=== PATIENT | female | born 1930 | race Caucasian/White ===

== ENCOUNTER 2016-05-07 09:59 | Outpatient (CLI) | payer MEDICARE, OTHER | END 2016-05-07 10:00 | disposition home or self-care (01) | DX: R10.30 Lower abdominal pain, unspecified (principal) ==

== ENCOUNTER 2016-05-14 09:56 | Outpatient (CLI) | payer MEDICARE, OTHER | END 2016-05-14 09:57 | disposition home or self-care (01) | DX: Z12.31 Encounter for screening mammogram for malignant neoplasm of breast (principal) ==

== ENCOUNTER 2016-05-14 09:59 | Outpatient (CLI) | payer MEDICARE, OTHER | END 2016-05-14 10:00 | disposition home or self-care (01) | DX: D25.9 Leiomyoma of uterus, unspecified (principal) ==

== ENCOUNTER 2016-05-18 07:49 | Outpatient (CLI) | payer MEDICARE, OTHER | END 2016-05-18 07:50 | disposition home or self-care (01) | DX: R93.2 Abnormal findings on diagnostic imaging of liver and biliary tract (principal); Z90.49 Acquired absence of other specified parts of digestive tract ==

== ENCOUNTER 2016-05-26 08:10 | Outpatient (CLI) | payer MEDICARE, OTHER | END 2016-05-26 08:11 | disposition home or self-care (01) | DX: Z79.899 Other long term (current) drug therapy (principal); M81.0 Age-related osteoporosis without current pathological fracture; J30.2 Other seasonal allergic rhinitis; J45.909 Unspecified asthma, uncomplicated; I10 Essential (primary) hypertension; I25.10 Atherosclerotic heart disease of native coronary artery without angina pectoris; K21.9 Gastro-esophageal reflux disease without esophagitis; Z86.010 Personal history of colon polyps; M19.90 Unspecified osteoarthritis, unspecified site; E11.9 Type 2 diabetes mellitus without complications; E03.9 Hypothyroidism, unspecified; D64.9 Anemia, unspecified ==

== ENCOUNTER 2016-07-28 16:46 | Outpatient (CLI) | payer MEDICARE, OTHER | END 2016-07-28 16:47 | disposition short-term general hospital (02) | DX: R07.89 Other chest pain (principal) | CPT/HCPCS: A0425; A0427 ==

== ENCOUNTER 2016-11-13 15:29 | Emergency (ER) | payer MEDICARE, OTHER ==
[2016-11-13 16:25] LABS: BILIRUBIN,URINE NEGATIVE (NEGATIVE)
[2016-11-13 16:26] LABS: UA w/ MICROSCOPIC CHARGE YES
[2016-11-13 16:41] LABS: UR CULTURE IF IND INDICATED
[2016-11-13] MEDS ORDERED: SODIUM CHLORIDE 0.9% 1,000 ML IV ONE ×2 (17:30→18:21)
[2016-11-13 18:19] LABS: BASOPHILS # (AUTO) 0.1 10^3/uL (0.0-0.1); BASOPHILS % (AUTO) 0.9 %; EOSINOPHILS # (AUTO) 0.3 10^3/uL (0.0-0.7); EOSINOPHILS % (AUTO) 3.3 %; HCT - HEMATOCRIT 40.1 % (37.0-47.0); HGB - HEMOGLOBIN 13.5 g/dL (12.0-16.0); LYMPHOCYTES # (AUTO) 2.4 10^3/uL (1.5-3.5); LYMPHOCYTES % (AUTO) 28.2 %; MEAN CORPUSCULAR HEMOGLOBIN 29.3 pg (27.0-31.0); MEAN CORPUSCULAR HGB CONC 33.6 g/dL (32.0-36.0); MEAN CORPUSCULAR VOLUME 87.1 fL (81.0-99.0); MEAN PLATELET VOLUME 7.1 fL (7.9-10.8); MONOCYTES # (AUTO) 1.1 10^3/uL (0.0-1.0); MONOCYTES % (AUTO) 13.5 %; NEUTROPHILS # (AUTO) 4.6 10^3/uL (1.5-6.6); NEUTROPHILS % (AUTO) 54.1 %; RED CELL DISTRIBUTION WIDTH 13.1 % (12.0-15.0); UNCORRECTED WHITE BLOOD COUNT 8.5 x10^3/uL; WHITE BLOOD COUNT 8.5 x10^3/uL (4.8-10.8)
[2016-11-13 18:20] LABS: ALBUMIN/GLOBULIN RATIO 1.4 (1.0-2.2); BILIRUBIN,TOTAL 0.7 mg/dL (0.2-1.0); CALCIUM 9.3 mg/dL (8.5-10.3); CREATININE 0.6 mg/dL (0.4-1.0); POTASSIUM 3.9 mmol/L (3.5-5.0); TOTAL PROTEIN 7.7 g/dL (6.7-8.2)
--- NOTE | 2016-11-13 18:30 | ED Physician Documentation ---
History of Present Illness - Stated complaint Stated Complaint: LIGHT HEADED - Chief complaint Chief Complaint: Neuro - History obtained from History obtained from: Patient - History of Present Illness Timing: How many hours ago (8) Pain level max: 0 Pain level now: 0 Improved by: States that she felt better when she arrived to the hospital. States now feels normal Worsened by: States was worse after eating breakfast this morning. - Additonal information Additional information: states felt weird today. had diarrhea x1. Patient is unable to elaborate any further on her history. Denies any chest pain, nausea, shortness of breath, vomiting, fevers, Focal weakness or numbness. Denies any headache or head injury. Review of Systems Constitutional: denies: Fever, Chills Nose: denies: Rhinorrhea / runny nose, Congestion Throat: denies: Sore throat Cardiac: denies: Chest pain / pressure, Palpitations Respiratory: denies: Dyspnea, Cough, Hemoptysis, Wheezing GI: denies: Vomiting, Hematemesis, Bloody / black stool : denies: Dysuria, Frequency, Hesitancy Skin: denies: Rash Musculoskeletal: denies: Neck pain, Back pain Neurologic: denies: Headache PD PAST MEDICAL HISTORY - Past Medical History Cardiovascular: Hypertension Endocrine/Autoimmune: Type 2 diabetes, HyPOthyroidism - Past Surgical History Past Surgical History: Yes General: Cholecystectomy HEENT: Cataracts - Present Medications Home Medications: Ambulatory Orders Medication Instructions Recorded Confirmed Amlodipine Besylate 10 mg PO DAILY 04/26/15 01/02/16 Cyclosporine [Restasis] 1 drop EACHEYE BID 04/26/15 01/02/16 Fexofenadine HCl 180 mg PO DAILY 04/26/15 01/02/16 Levothyroxine [Synthroid] 100 mcg PO QDAC 04/26/15 01/02/16 Losartan [Cozaar] 100 mg DAILY 04/26/15 01/02/16 Omeprazole [PriLOSEC] 20 mg DAILY 04/26/15 01/02/16 Simvastatin 20 mg PO QPM 04/26/15 01/02/16 Alprazolam 0.25 mg PO DAILY PRN 01/02/16 01/02/16 Cyanocobalamin (Vitamin B-12) 1,000 mcg PO DAILY 01/02/16 01/02/16 [Vitamin B-12] Estrogens, Conjugated [Premarin] 0.625 mg PO Q2D 01/02/16 01/02/16 Nitrofurantoin [Macrobid] 100 mg PO BID #12 capsule 01/03/16 Cephalexin [Keflex] 500 mg PO Q6H #28 capsule 11/13/16 - Allergies Allergies/Adverse Reactions: Allergies Allergy/AdvReac Type Severity Reaction Status Date / Time ciprofloxacin HCl * AdvReac Unknown Emesis Verified 11/13/16 15:49 [From Cipro] - Social History Does the pt smoke?: No Smoking Status: Never smoker Does the pt drink ETOH?: Yes ETOH Use: Wine Does the pt have substance abuse?: No PD ED PE NORMAL - Vitals Vital signs reviewed: Yes - General General: Alert and oriented X 3, No acute distress, Well developed/nourished - HEENT HEENT: PERRL, Moist mucous membranes - Neck Neck: Supple, no meningeal sign, No JVD, No bruit - Cardiac Cardiac: RRR, Strong equal pulses - Respiratory Respiratory: No respiratory distress, Clear bilaterally - Abdomen Abdomen: Soft, Non tender, Non distended - Back Back: No CVA TTP, No spinal TTP - Derm Derm: Warm and dry, No rash - Extremities Extremities: No calf tenderness / cord - Neuro Neuro: Alert and oriented X 3, steel rigger 2-12 intact, No motor deficit, No sensory deficit, Normal speech - Psych Psych: Normal mood, Normal affect Results - Vitals Vitals: Vital Signs - 24 hr 11/13/16 11/13/16 15:45 18:38 Temperature 36.0 C L 36.0 C L Heart Rate 69 65 Respiratory 18 15 Rate Blood Pressure 137/74 H 159/60 H O2 Saturation 96 97 Oxygen O2 Source Room air - EKG (time done) 1837 Rate: Rate (enter#) (65) Rhythm: NSR Intervals: LBBB Computer interpretation: Agree with computer - Labs Labs: Laboratory Tests 11/13/16 11/13/16 11/13/16 15:53 16:06 18:02 WBC 8.5 RBC 4.60 Hgb 13.5 Hct 40.1 MCV 87.1 MCH 29.3 MCHC 33.6 RDW 13.1 Plt Count 384 MPV 7.1 L Neut # 4.6 Lymph # 2.4 [place] # 1.1 H Eos # 0.3 Baso # 0.1 Absolute Nucleated RBC 0.00 Nucleated RBCs 0.0 Sodium Potassium Chloride Carbon Dioxide Anion Gap BUN Creatinine Estimated GFR (MDRD) Glucose POC Whole Bld Glucose 134 H Calcium Total Bilirubin AST ALT Alkaline Phosphatase Total Protein Albumin Globulin Albumin/Globulin Ratio Lipase Urine Color YELLOW Urine Clarity CLEAR Urine pH 6.0 Ur Specific [place] <=1.005 Urine Protein NEGATIVE Urine Glucose (UA) NEGATIVE Urine Ketones NEGATIVE Urine Occult Blood NEGATIVE Urine Nitrite NEGATIVE Urine Bilirubin NEGATIVE Urine Urobilinogen 0.2 (NORMAL) Ur Leukocyte Esterase SMALL H Urine RBC 0-5 Urine WBC 4-5 Ur Squamous Epith Cells FEW Squamous Urine Bacteria Few Ur Microscopic Review INDICATED Urine Culture Comments INDICATED 11/13/16 18:02 WBC RBC Hgb Hct MCV MCH MCHC RDW Plt Count MPV Neut # Lymph # [place] # Eos # Baso # Absolute Nucleated RBC Nucleated RBCs Sodium 131 L Potassium 3.9 Chloride 97 L Carbon Dioxide 24 Anion Gap 10.0 BUN 13 Creatinine 0.6 Estimated GFR (MDRD) 95 Glucose 118 H POC Whole Bld Glucose Calcium 9.3 Total Bilirubin 0.7 AST 19 ALT 21 Alkaline Phosphatase 65 Total Protein 7.7 Albumin 4.5 Globulin 3.2 Albumin/Globulin Ratio 1.4 Lipase 20 L Urine Color Urine Clarity Urine pH Ur Specific [place] Urine Protein Urine Glucose (UA) Urine Ketones Urine Occult Blood Urine Nitrite Urine Bilirubin Urine Urobilinogen Ur Leukocyte Esterase Urine RBC Urine WBC Ur Squamous Epith Cells Urine Bacteria Ur Microscopic Review Urine Culture Comments PD MEDICAL DECISION MAKING - ED course Complexity details: reviewed results, re-evaluated patient, considered differential, d/w patient ED course: Patient is an 86-year-old female who complains of not feeling right today. She is found to have UTI and will place her on antibiotics for this. No other acute laboratory abnormalities. Feels normal upon arrival to the ER. Patient states that the left bundle branch block is old on her EKG. No chest pain, shortness of breath. No anginal equivalent. Tolerating p.o. without difficulty. Abdomen is soft, nontender nondistended on serial exam. Patient counseled regarding signs and symptoms for which I believe and urgent re- evaluation would be necessary. Patient with good understanding of and agreement to plan and is comfortable going home at this time This document was made in part using voice recognition software. While efforts are made to proofread this document, sound alike and grammatical errors may occur. Departure - Departure Disposition: Home, Self Care Clinical Impression: Urinary tract infection Qualifiers: Urinary tract infection type: acute cystitis Hematuria presence: without hematuria Qualified Code(s): N30.00 - Acute cystitis without hematuria Condition: Good Instructions: ED UTI Cystitis Female Follow-Up: Gila Wen MD [Primary Care Provider] - Within 1 week Prescriptions: Cephalexin [Keflex] 500 mg PO Q6H #28 capsule Comments: Take all antibiotics until gone. Return if you worsen. Discharge Date/Time: 11/13/16 18:56
[2016-11-13 18:39] VITALS: BP 159/60
== END 2016-11-13 18:56 | disposition home or self-care (01) ==
LOC: ED 15:29
DX: N30.00 Acute cystitis without hematuria (principal); I44.7 Left bundle-branch block, unspecified; R94.31 Abnormal electrocardiogram [ECG] [EKG]; I10 Essential (primary) hypertension; E11.9 Type 2 diabetes mellitus without complications; E03.9 Hypothyroidism, unspecified
CPT/HCPCS: 36415; 80053; 81001; 81003; 83690; 85025; 87086; 93005; 99283; 99284

== ENCOUNTER 2016-12-04 11:07 | Outpatient (CLI) | payer MEDICARE, OTHER ==
--- NOTE | 2016-12-04 11:31 | XRAY Report ---
TWO VIEW CHEST: 12/04/2016 CLINICAL INDICATION: Cough, wheezing. COMPARISON: 01/02/2016. FINDINGS: Frontal and lateral views of the chest demonstrate a normal cardiac silhouette. The lungs are clear. No effusion or pneumothorax is present. IMPRESSION: NORMAL CHEST. JOB #: [id number] EXT JOB #:[id number]
== END 2016-12-04 11:08 | disposition home or self-care (01) ==
LOC: DI 11:07
PROVIDERS: ATTEND Internal Medicine
DX: R05 Cough (principal); R06.2 Wheezing
CPT/HCPCS: 71020

== ENCOUNTER 2017-03-17 10:15 | Emergency (ER) | payer MEDICARE, OTHER ==
--- NOTE | 2017-03-17 10:36 | ED Physician Documentation ---
PD HPI FEMALE - Stated complaint Stated Complaint: FEMALE - Chief complaint Chief Complaint: General - History obtained from History obtained from: Patient - History of Present Illness Timing - onset: Yesterday (with feeling of small amounts urination and feeling of incomplete empptying. Has discomfort with urination today. Also with some rectal discomforta with wiping after 2-3 large BMs a few days ago.) Timing - details: Abrupt onset, Still present Associated symptoms: Dysuria, Urinary frequency. No: Fever, Pelvic pain, Genital sore/lesion, Hematuria Similar symptoms before: Has not had sx before Recently seen: Not recently seen Review of Systems Constitutional: denies: Fever, Chills Nose: denies: Rhinorrhea / runny nose, Congestion Throat: denies: Sore throat Respiratory: denies: Cough GI: denies: Nausea, Vomiting, Diarrhea (but had 2-3 large BMs a few days ago with some rectal tender with wiping since. No blood with stool nor wiping.) : reports: Dysuria, Frequency. denies: Hematuria, Discharge Skin: denies: Rash, Lesions Musculoskeletal: denies: Neck pain, Back pain, Extremity swelling Neurologic: denies: Generalized weakness, Focal weakness, Numbness, Near syncope Immunocompromised: denies: Immunocompromised PD PAST MEDICAL HISTORY - Past Medical History Cardiovascular: Hypertension Endocrine/Autoimmune: Type 2 diabetes, HyPOthyroidism - Past Surgical History Past Surgical History: Yes General: Cholecystectomy HEENT: Cataracts - Present Medications Home Medications: Ambulatory Orders Medication Instructions Recorded Confirmed Amlodipine Besylate 10 mg PO DAILY 04/26/15 03/17/17 Fexofenadine HCl 180 mg PO DAILY 04/26/15 03/17/17 Levothyroxine [Synthroid] 100 mcg PO QDAC 04/26/15 03/17/17 Losartan [Cozaar] 100 mg PO DAILY 04/26/15 03/17/17 Omeprazole [PriLOSEC] 20 mg PO DAILY 04/26/15 03/17/17 Simvastatin 20 mg PO QPM 04/26/15 03/17/17 ALPRAZolam [Alprazolam] 0.25 mg PO DAILY PRN 01/02/16 03/17/17 Cyanocobalamin (Vitamin B-12) 1,000 mcg PO DAILY 01/02/16 03/17/17 [Vitamin B-12] Hydrocortisone Acetate [Anucort-Hc] 25 mg RC DAILY #5 supp.rect 03/17/17 Metoprolol Tartrate 1 tab PO DAILY 03/17/17 03/17/17 Phenazopyridine [Pyridium] 100 mg PO TID PRN #15 tablet 03/17/17 Sulfamethox/Trimeth 800/160 1 each PO BID #14 tablet 03/17/17 [Bactrim Ds 800/160] - Allergies Allergies/Adverse Reactions: Allergies Allergy/AdvReac Type Severity Reaction Status Date / Time ciprofloxacin HCl * AdvReac Unknown Emesis Verified 03/17/17 10:25 [From Cipro] - Social History Does the pt smoke?: No Smoking Status: Never smoker Does the pt drink ETOH?: Yes Does the pt have substance abuse?: No PD ED PE NORMAL - Vitals Vital signs reviewed: Yes - General General: Alert and oriented X 3, Well developed/nourished - Cardiac Cardiac: RRR, No murmur - Respiratory Respiratory: Clear bilaterally - Abdomen Abdomen: Soft, Non tender - Female Female : Deferred - Rectal Rectal: Deferred - Back Back: No CVA TTP - Derm Derm: Normal color, Warm and dry - Extremities Extremities: No edema, No calf tenderness / cord - Neuro Neuro: Alert and oriented X 3, No motor deficit, Normal speech Results - Vitals Vitals: Vital Signs - 24 hr 03/17/17 03/17/17 10:23 12:31 Temperature 36.2 C L 35.6 C L Heart Rate 79 73 Respiratory 16 20 Rate Blood Pressure 140/105 H 154/71 H O2 Saturation 96 96 Oxygen O2 Source Room air - Labs Labs: Laboratory Tests 03/17/17 03/17/17 03/17/17 10:58 11:14 11:15 WBC 9.1 RBC 4.59 Hgb 13.4 Hct 39.2 MCV 85.4 MCH 29.3 MCHC 34.3 RDW 13.3 Plt Count 369 MPV 6.8 L Neut # 5.3 Lymph # 2.3 [place] # 1.2 H Eos # 0.2 Baso # 0.1 Absolute Nucleated RBC 0.00 Nucleated RBC % 0.0 Sodium Potassium Chloride Carbon Dioxide Anion Gap BUN Creatinine Estimated GFR (MDRD) Glucose POC Whole Bld Glucose 132 H Glycated Hemoglobin Estim Average Glucose Calcium Magnesium Total Bilirubin AST ALT Alkaline Phosphatase Total Protein Albumin Globulin Albumin/Globulin Ratio Lipase Urine Color YELLOW Urine Clarity SL. CLOUDY Urine pH 7.0 Ur Specific [place] 1.010 Urine Protein NEGATIVE Urine Glucose (UA) NEGATIVE Urine Ketones NEGATIVE Urine Occult Blood TRACE-INTA Urine Nitrite POSITIVE H Urine Bilirubin NEGATIVE Urine Urobilinogen 0.2 (NORMAL) Ur Leukocyte Esterase LARGE H Urine RBC 0-5 Urine WBC >25 H Ur Squamous Epith Cells NONE SEEN Urine Bacteria Moderate H Ur Microscopic Review INDICATED Urine Culture Comments INDICATED 03/17/17 03/17/17 11:15 11:15 WBC RBC Hgb Hct MCV MCH MCHC RDW Plt Count MPV Neut # Lymph # [place] # Eos # Baso # Absolute Nucleated RBC Nucleated RBC % Sodium 132 L Potassium 4.0 Chloride 96 L Carbon Dioxide 24 Anion Gap 12.0 BUN 13 Creatinine 0.6 Estimated GFR (MDRD) 95 Glucose 142 H POC Whole Bld Glucose Glycated Hemoglobin 7.5 H Estim Average Glucose 169 H Calcium 9.3 Magnesium 2.1 Total Bilirubin 0.7 AST 33 ALT 29 Alkaline Phosphatase 67 Total Protein 7.3 Albumin 4.0 Globulin 3.3 Albumin/Globulin Ratio 1.2 Lipase 21 L Urine Color Urine Clarity Urine pH Ur Specific [place] Urine Protein Urine Glucose (UA) Urine Ketones Urine Occult Blood Urine Nitrite Urine Bilirubin Urine Urobilinogen Ur Leukocyte Esterase Urine RBC Urine WBC Ur Squamous Epith Cells Urine Bacteria Ur Microscopic Review Urine Culture Comments PD MEDICAL DECISION MAKING - ED course Complexity details: reviewed results (UA is c/w UTI. She had about 360 ml urine after initial urination with only small amount out but then had another larger urination. So I don't think she needs reese, given that there should be improvement with treating the UTI. Presume she has some mild hemorrhoid by her complaints and did not do rectal. ), considered differential, d/w patient Departure - Departure Disposition: 01 Home, Self Care Clinical Impression: Acute urinary retention, Rectal discomfort UTI (urinary tract infection) Qualifiers: Urinary tract infection type: acute cystitis Hematuria presence: without hematuria Qualified Code(s): N30.00 - Acute cystitis without hematuria Condition: Stable Record reviewed to determine appropriate education?: Yes Instructions: ED Retention Urinary Female, ED UTI Cystitis Female Follow-Up: Gila Wen MD [Primary Care Provider] - Prescriptions: Hydrocortisone Acetate [Anucort-Hc] 25 mg RC DAILY #5 supp.rect Phenazopyridine [Pyridium] 100 mg PO TID PRN #15 tablet PRN Reason: Pain Sulfamethox/Trimeth 800/160 [Bactrim Ds 800/160] 1 each PO BID #14 tablet Comments: You do have a bladder infection. This is causing irritation which is likely the cause of not emptying the bladder consistently. I would presume the urine outflow will improve as the infection clears over the next couple of days. Drink lots of fluids. He can use the phenazopyridine as needed for discomfort with urination. Bactrim twice daily for a week for the infection. Also for your presumed hemorrhoidal discomfort, use the Anusol rectal suppository daily for the next 3-5 days until improved. Recheck if not improved over the next few days with your primary care. Discharge Date/Time: 03/17/17 12:57
[2017-03-17 11:22] LABS: BASOPHILS # (AUTO) 0.1 10^3/uL (0.0-0.1); EOSINOPHILS # (AUTO) 0.2 10^3/uL (0.0-0.7); EOSINOPHILS % (AUTO) 2.5 %; HCT - HEMATOCRIT 39.2 % (37.0-47.0); HGB - HEMOGLOBIN 13.4 g/dL (12.0-16.0); LYMPHOCYTES # (AUTO) 2.3 10^3/uL (1.5-3.5); LYMPHOCYTES % (AUTO) 25.1 %; MEAN CORPUSCULAR HEMOGLOBIN 29.3 pg (27.0-31.0); MEAN CORPUSCULAR HGB CONC 34.3 g/dL (32.0-36.0); MEAN CORPUSCULAR VOLUME 85.4 fL (81.0-99.0); MEAN PLATELET VOLUME 6.8 fL (7.9-10.8); MONOCYTES # (AUTO) 1.2 10^3/uL (0.0-1.0); MONOCYTES % (AUTO) 13.3 %; NEUTROPHILS # (AUTO) 5.3 10^3/uL (1.5-6.6); NEUTROPHILS % (AUTO) 58.1 %; RED BLOOD COUNT 4.59 10^6/uL (4.20-5.40); RED CELL DISTRIBUTION WIDTH 13.3 % (12.0-15.0); UNCORRECTED WHITE BLOOD COUNT 9.1 x10^3/uL; WHITE BLOOD COUNT 9.1 x10^3/uL (4.8-10.8)
[2017-03-17 11:24] LABS: BILIRUBIN,URINE NEGATIVE (NEGATIVE)
[2017-03-17 11:26] LABS: UA w/ MICROSCOPIC CHARGE YES
[2017-03-17 11:37] LABS: ALBUMIN/GLOBULIN RATIO 1.2 (1.0-2.2); BILIRUBIN,TOTAL 0.7 mg/dL (0.2-1.0); CALCIUM 9.3 mg/dL (8.5-10.3); CREATININE 0.6 mg/dL (0.4-1.0); MAGNESIUM 2.1 mg/dL (1.7-2.8); TOTAL PROTEIN 7.3 g/dL (6.7-8.2)
[2017-03-17 11:38] LABS: UR CULTURE IF IND INDICATED; WBC,URINE >25 /HPF (0-5)
[2017-03-17 11:44] LABS: HEMOGLOBIN A1C 0.83 g/dL
[2017-03-17] MEDS ORDERED: SULFAMETH/TRIMETH DS 800/160 MG TABLET PO STA (11:58)
[2017-03-17] MEDS ORDERED: PHENAZOPYRIDINE 100 MG TABLET PO STA (11:58)
[2017-03-17] MEDS ORDERED: SULFAMETH/TRIMETH DS 800/160 MG TABLET PO ONE (12:15)
[2017-03-17] MEDS ORDERED: PHENAZOPYRIDINE 100 MG TABLET PO ONE (12:15)
[2017-03-17 12:32] VITALS: BP 154/71
== END 2017-03-17 12:57 | disposition home or self-care (01) ==
LOC: ED 10:15
DX: N30.00 Acute cystitis without hematuria (principal); R33.9 Retention of urine, unspecified; I10 Essential (primary) hypertension; E11.9 Type 2 diabetes mellitus without complications; E03.9 Hypothyroidism, unspecified
CPT/HCPCS: 36415; 51798; 80053; 81001; 83036; 83690; 83735; 85025; 87086; 87181; 99283; A9270; 81003

== ENCOUNTER 2017-05-31 08:15 | Outpatient (CLI) | payer MEDICARE, OTHER ==
[2017-05-31 12:16] LABS: BASOPHILS # (AUTO) 0.1 10^3/uL (0.0-0.1); BASOPHILS % (AUTO) 1.3 %; EOSINOPHILS # (AUTO) 0.2 10^3/uL (0.0-0.7); EOSINOPHILS % (AUTO) 2.6 %; HGB - HEMOGLOBIN 13.4 g/dL (12.0-16.0); LYMPHOCYTES # (AUTO) 2.1 10^3/uL (1.5-3.5); LYMPHOCYTES % (AUTO) 29.5 %; MEAN CORPUSCULAR HEMOGLOBIN 29.6 pg (27.0-31.0); MEAN CORPUSCULAR HGB CONC 34.4 g/dL (32.0-36.0); MEAN CORPUSCULAR VOLUME 85.9 fL (81.0-99.0); MEAN PLATELET VOLUME 7.7 fL (7.9-10.8); MONOCYTES # (AUTO) 0.9 10^3/uL (0.0-1.0); MONOCYTES % (AUTO) 12.9 %; NEUTROPHILS # (AUTO) 3.8 10^3/uL (1.5-6.6); NEUTROPHILS % (AUTO) 53.7 %; PLT - PLATELET COUNT 400 10^3/uL (130-450); RED BLOOD COUNT 4.54 10^6/uL (4.20-5.40); RED CELL DISTRIBUTION WIDTH 13.1 % (12.0-15.0); WHITE BLOOD COUNT 7.1 x10^3/uL (4.8-10.8)
[2017-05-31 12:31] LABS: ALBUMIN 4.4 g/dL (3.2-5.5); ALBUMIN/GLOBULIN RATIO 1.5 (1.0-2.2); ALKALINE PHOSPHATASE 66 IU/L (42-121); ALT ALANINE AMINOTRANSFERASE 23 IU/L (10-60); AST ASPARTATE AMINOTRANSFERASE 29 IU/L (10-42); BILIRUBIN,TOTAL 0.4 mg/dL (0.2-1.0); BUN - BLOOD UREA NITROGEN 14 mg/dL (6-20); CALCIUM 8.8 mg/dL (8.5-10.3); CARBON DIOXIDE - CO2 24 mmol/L (21-32); CHLORIDE 96 mmol/L (101-111); CHOL/HDL RATIO 4.7 (<4.4); CHOLESTEROL 186 mg/dL; CK- CREATINE KINASE 100 IU/L (22-269); CREATININE 0.7 mg/dL (0.4-1.0); GFR - MDRD 79 (>89); GLUCOSE 146 mg/dL (70-100); HDL CHOLESTEROL 40 mg/dL; LDL CHOLESTEROL,CALCULATED 88 mg/dL; LDL/HDL RATIO 2.2 (<4.4); SODIUM 129 mmol/L (135-145); TOTAL PROTEIN 7.4 g/dL (6.7-8.2); VLDL CHOLESTEROL 58 mg/dL
[2017-05-31 12:33] LABS: HB2 TOTAL 14.8 g/dL; HEMOGLOBIN A1C 0.89 g/dL; HEMOGLOBIN A1C % 7.7 % (4.6-6.2)
[2017-05-31 12:39] LABS: THYROID STIMULATING HORMONE 2.75 uIU/mL (0.34-5.60)
[2017-05-31 18:08] LABS: BILIRUBIN,URINE NEGATIVE (NEGATIVE); GLUCOSE, URINE (UA) NEGATIVE (NEGATIVE); KETONES,URINE (UA) NEGATIVE (NEGATIVE); LEUKOCYTE ESTERASE, URINE TRACE (NEGATIVE); NITRITE,URINE NEGATIVE (NEGATIVE); OCCULT BLOOD,URINE NEGATIVE (NEGATIVE); PROTEIN,URINE NEGATIVE (NEGATIVE); UROBILINOGEN,URINE 0.2 (NORMAL) E.U./dL (NORMAL)
[2017-05-31 18:18] LABS: CREATININE,URINE 52.9 mg/dL; MICROALBUM/CREATININE RATIO,UR 9.5 ug/mg (<30.0); MICROALBUMIN,URINE 0.5 mg/dL (0-300.0)
[2017-05-31 18:19] LABS: CLARITY,URINE HAZY (CLEAR)
[2017-05-31 19:12] LABS: BACTERIA,URINE Rare /HPF (None Seen); RBC,URINE None Seen /HPF (0-5); SQUAMOUS EPITHELIAL CELL,UR FEW Squamous (<= Few)
== END 2017-05-31 08:16 | disposition home or self-care (01) ==
LOC: LAB.F 08:15
PROVIDERS: ATTEND Internal Medicine
DX: D64.9 Anemia, unspecified (principal); K76.0 Fatty (change of) liver, not elsewhere classified; Z79.899 Other long term (current) drug therapy; K21.9 Gastro-esophageal reflux disease without esophagitis; I10 Essential (primary) hypertension; I25.10 Atherosclerotic heart disease of native coronary artery without angina pectoris; R20.0 Anesthesia of skin; E03.9 Hypothyroidism, unspecified; E11.9 Type 2 diabetes mellitus without complications; J30.2 Other seasonal allergic rhinitis; J45.909 Unspecified asthma, uncomplicated; M19.90 Unspecified osteoarthritis, unspecified site; M81.0 Age-related osteoporosis without current pathological fracture; Z86.010 Personal history of colon polyps; Z87.19 Personal history of other diseases of the digestive system
CPT/HCPCS: 36415; 80053; 80061; 81001; 81003; 82043; 82306; 82550; 82570; 82607; 83036; 83721; 84443; 85025; 87086

== ENCOUNTER 2017-08-17 08:23 | Outpatient (CLI) | payer MEDICARE, OTHER ==
[2017-08-17 13:39] LABS: CALCIUM 8.7 mg/dL (8.5-10.3); CREATININE 0.6 mg/dL (0.4-1.0)
[2017-08-17 13:55] LABS: HB2 TOTAL 14.6 g/dL; HEMOGLOBIN A1C 0.85 g/dL; HEMOGLOBIN A1C % 7.5 % (4.6-6.2)
[2017-08-17 17:52] LABS: BILIRUBIN,URINE NEGATIVE (NEGATIVE); GLUCOSE, URINE (UA) NEGATIVE (NEGATIVE); KETONES,URINE (UA) NEGATIVE (NEGATIVE); LEUKOCYTE ESTERASE, URINE LARGE (NEGATIVE); NITRITE,URINE NEGATIVE (NEGATIVE); OCCULT BLOOD,URINE NEGATIVE (NEGATIVE); PROTEIN,URINE NEGATIVE (NEGATIVE); UROBILINOGEN,URINE 0.2 (NORMAL) E.U./dL (NORMAL)
[2017-08-17 17:57] LABS: CLARITY,URINE CLOUDY (CLEAR)
[2017-08-17 18:39] LABS: BACTERIA,URINE Many /HPF (None Seen); RBC,URINE None Seen /HPF (0-5); SQUAMOUS EPITHELIAL CELL,UR NONE SEEN (<= Few); WBC CLUMPS,URINE PRESENT
== END 2017-08-17 08:24 | disposition home or self-care (01) ==
LOC: LAB.F 08:23
PROVIDERS: ATTEND Internal Medicine
DX: E11.9 Type 2 diabetes mellitus without complications (principal); N30.00 Acute cystitis without hematuria; Z79.899 Other long term (current) drug therapy
CPT/HCPCS: 36415; 80048; 81001; 81003; 83036; 87086

== ENCOUNTER 2017-09-03 08:43 | Outpatient (CLI) | payer MEDICARE, OTHER ==
[2017-09-03 17:23] LABS: MICROALBUMIN,URINE 0.3 mg/dL (0-300.0)
[2017-09-03 17:27] LABS: BUN - BLOOD UREA NITROGEN 11 mg/dL (6-20); CALCIUM 8.8 mg/dL (8.5-10.3); CARBON DIOXIDE - CO2 25 mmol/L (21-32); CHLORIDE 97 mmol/L (101-111); CHOL/HDL RATIO 4.4 (<4.4); CHOLESTEROL 181 mg/dL; CREATININE 0.6 mg/dL (0.4-1.0); GFR - MDRD 95 (>89); GLUCOSE 151 mg/dL (70-100); HDL CHOLESTEROL 41 mg/dL; HEMOGLOBIN A1C 0.85 g/dL; HEMOGLOBIN A1C % 7.7 % (4.6-6.2); LDL CHOLESTEROL,CALCULATED 93 mg/dL; LDL/HDL RATIO 2.3 (<4.4); SODIUM 131 mmol/L (135-145); VLDL CHOLESTEROL 47 mg/dL
== END 2017-09-03 08:44 | disposition home or self-care (01) ==
LOC: LAB.F 08:43
PROVIDERS: ATTEND Internal Medicine
DX: E87.1 Hypo-osmolality and hyponatremia (principal); E11.9 Type 2 diabetes mellitus without complications; E78.5 Hyperlipidemia, unspecified; E03.9 Hypothyroidism, unspecified
CPT/HCPCS: 36415; 80048; 80061; 82043; 83036; 83721; 84300; 84443

== ENCOUNTER 2018-01-31 07:18 | Outpatient (CLI) | payer MEDICARE, OTHER ==
[2018-01-31 10:52] LABS: BASOPHILS # (AUTO) 0.1 10^3/uL (0.0-0.1); BASOPHILS % (AUTO) 0.9 %; EOSINOPHILS # (AUTO) 0.3 10^3/uL (0.0-0.7); EOSINOPHILS % (AUTO) 4.1 %; HGB - HEMOGLOBIN 13.8 g/dL (12.0-16.0); LYMPHOCYTES % (AUTO) 25.7 %; MEAN CORPUSCULAR HEMOGLOBIN 29.9 pg (27.0-31.0); MEAN CORPUSCULAR HGB CONC 34.4 g/dL (32.0-36.0); MEAN CORPUSCULAR VOLUME 86.8 fL (81.0-99.0); MEAN PLATELET VOLUME 7.4 fL (7.9-10.8); MONOCYTES % (AUTO) 12.7 %; NEUTROPHILS # (AUTO) 4.3 10^3/uL (1.5-6.6); NEUTROPHILS % (AUTO) 56.6 %; PLT - PLATELET COUNT 424 10^3/uL (130-450); RED BLOOD COUNT 4.62 10^6/uL (4.20-5.40); RED CELL DISTRIBUTION WIDTH 13.3 % (12.0-15.0); WHITE BLOOD COUNT 7.6 x10^3/uL (4.8-10.8)
[2018-01-31 11:03] LABS: BUN - BLOOD UREA NITROGEN 10 mg/dL (6-20); CALCIUM 9.2 mg/dL (8.5-10.3); CARBON DIOXIDE - CO2 23 mmol/L (21-32); CHLORIDE 97 mmol/L (101-111); CHOL/HDL RATIO 5.8 (<4.4); CHOLESTEROL 267 mg/dL; CREATININE 0.6 mg/dL (0.4-1.0); GFR - MDRD 95 (>89); GLUCOSE 148 mg/dL (70-100); HDL CHOLESTEROL 46 mg/dL; LDL CHOLESTEROL,CALCULATED 151 mg/dL; LDL/HDL RATIO 3.3 (<4.4); SODIUM 130 mmol/L (135-145); VLDL CHOLESTEROL 70 mg/dL
[2018-01-31 11:04] LABS: FERRITIN 153.9 ng/mL (11.0-306.8)
[2018-01-31 11:10] LABS: MAGNESIUM 2.3 mg/dL (1.7-2.8)
== END 2018-01-31 07:19 | disposition home or self-care (01) ==
LOC: LAB.F 07:18
PROVIDERS: ATTEND Internal Medicine Gastroenterology
DX: E87.1 Hypo-osmolality and hyponatremia (principal); E78.5 Hyperlipidemia, unspecified; E03.9 Hypothyroidism, unspecified; R42 Dizziness and giddiness; Z86.010 Personal history of colon polyps
CPT/HCPCS: 36415; 80048; 80061; 82150; 82306; 82607; 82728; 83540; 83690; 83721; 83735; 84443; 84466; 85025

== ENCOUNTER 2018-04-01 07:45 | Outpatient (CLI) | payer MEDICARE, OTHER ==
[2018-04-01 11:19] LABS: ALBUMIN/GLOBULIN RATIO 1.1 (1.0-2.2); ALKALINE PHOSPHATASE 92 IU/L (42-121); ALT ALANINE AMINOTRANSFERASE 23 IU/L (10-60); AST ASPARTATE AMINOTRANSFERASE 26 IU/L (10-42); BILIRUBIN,TOTAL 0.6 mg/dL (0.2-1.0); BUN - BLOOD UREA NITROGEN 13 mg/dL (6-20); CARBON DIOXIDE - CO2 26 mmol/L (21-32); CHLORIDE 97 mmol/L (101-111); CHOL/HDL RATIO 4.3 (<4.4); CHOLESTEROL 172 mg/dL; CREATININE 0.5 mg/dL (0.4-1.0); GFR - MDRD 116 (>89); GLUCOSE 172 mg/dL (70-100); HDL CHOLESTEROL 40 mg/dL; LDL CHOLESTEROL,CALCULATED 66 mg/dL; LDL/HDL RATIO 1.7 (<4.4); SODIUM 133 mmol/L (135-145); TOTAL PROTEIN 7.5 g/dL (6.7-8.2); VLDL CHOLESTEROL 66 mg/dL
[2018-04-01 11:38] LABS: HB2 TOTAL 13.3 g/dL; HEMOGLOBIN A1C 0.81 g/dL; HEMOGLOBIN A1C % 7.7 % (4.6-6.2)
== END 2018-04-01 07:46 | disposition home or self-care (01) ==
LOC: LAB.F 07:45
PROVIDERS: ATTEND Internal Medicine
DX: E78.5 Hyperlipidemia, unspecified (principal); R73.01 Impaired fasting glucose; E03.9 Hypothyroidism, unspecified
CPT/HCPCS: 36415; 80053; 80061; 83036; 83721; 84443

== ENCOUNTER 2018-05-26 09:51 | Outpatient (CLI) | payer MEDICARE, OTHER ==
--- NOTE | 2018-05-26 12:38 | DEXA Report ---
Reason: ASYMPTOMATIC MENOPAUSAL STATE Procedure Date: 05/26/2018 Accession Number: [id number] / [id number] Procedure: DEX - Dexa Spine and/or Hip CPT Code: FULL RESULT: EXAM: Dexa Spine and/or Hip DATE: 05/26/2018 11:04 AM CLINICAL HISTORY: ASYMPTOMATIC MENOPAUSAL STATE TECHNIQUE: Dual energy x-ray absorptiometry (DXA) was performed on a [employer] System. Regions measured are the AP Spine, femoral neck, and if needed forearm. COMPARISON: None. In accordance with the International Society for Clinical Densitometry (ISCD) guidelines, data from previous exams may be reanalyzed using current recommendations and techniques. This is done to allow a more accurate basis for comparison with the current study. FINDINGS: The data for the lumbar spine is as follows: BMD (g/cm/cm) T-SCORE Z-SCORE REGION L1 1.060 -0.6 1.3 L2 1.217 0.1 2.1 L3 1.365 1.4 3.3 L4 1.362 1.3 3.3 TOTAL 1.247 0.6 2.5 NOTE: All evaluable vertebrae are used for classification The data for the hip is as follows: BMD (g/cm/cm) T-SCORE Z-SCORE REGION Neck 0.688 -2.5 0.0 TOTAL 0.816 -1.5 0.9 NOTE: The femoral neck or total proximal femur, whichever is lowest, is used for classification. IMPRESSION: THE WHO CLASSIFICATION BASED ON THE INTERNATIONAL REFERENCE STANDARD IS OSTEOPENIA (bordering on Osteoporosis). THE FRACTURE RISK IS INCREASED. RECOMMENDATION: Patients with diagnosis of osteoporosis or osteopenia should have regular bone mineral density assessment. For those eligible for Medicare, routine testing is allowed once every 2 years. Testing frequency can be increased for patients who have rapidly progressing disease or for those who are receiving medical therapy to restore bone mass. COMMENT: World Health Organization (WHO) definitions for osteoporosis and osteopenia: NORMAL BMD: T-score at -1.0 or higher, fracture risk is low OSTEOPENIA BMD: T-score between -1.0 and -2.5, fracture risk is increased. OSTEOPOROSIS BMD: T-score at -2.5 or lower, fracture risk is high. National Osteoporosis Foundation recommends: 1. Obtain adequate dietary calcium (at least 1200 mg per day) and vitamin D (400-800 international units per day). 2. Participate, as appropriate, in regular weightbearing and muscle-strengthening exercise. 3. Avoid tobacco use and reduce alcohol and caffeine intake. 4. For more detailed information see the website at www.NOF.org.
== END 2018-05-26 09:52 | disposition home or self-care (01) ==
LOC: DI 09:51
PROVIDERS: ATTEND Internal Medicine
DX: M85.89 Other specified disorders of bone density and structure, multiple sites (principal); Z78.0 Asymptomatic menopausal state
CPT/HCPCS: 77080

== ENCOUNTER 2018-08-13 20:45 | Outpatient (CLI) | payer MEDICARE, OTHER | END 2018-08-13 20:46 | disposition critical access hospital (66) | LOC: EMS 20:45 | PROVIDERS: ATTEND Surgery | DX: R11.2 Nausea with vomiting, unspecified (principal); R19.7 Diarrhea, unspecified | CPT/HCPCS: A0425; A0427 ==

== ENCOUNTER 2018-08-13 21:10 | Emergency (ER) | payer MEDICARE, OTHER ==
[2018-08-13] MEDS ORDERED: SODIUM CHLORIDE 0.9% 1,000 ML IV ONE (21:18)
--- NOTE | 2018-08-13 21:21 | ED Physician Documentation ---
History of Present Illness - Stated complaint Stated Complaint: N/V/D - Chief complaint Chief Complaint: Abd Pain - History obtained from History obtained from: Patient - Additonal information Additional information: Patient is an 88-year-old female with history of gallbladder removal presenting with several days of mild, diffuse abdominal discomfort associated with nonbloody vomiting and diarrhea. Patient reports that she has multiple recent sick contacts with similar symptoms in her family. Patient has taken Imodium with improvement. Last Imodium was taken yesterday. Patient also reports v omiting has significantly subsided, but complains of frequent diarrhea today. No Imodium today. Patient denies fever, urination changes, or other complaints. No other improving or worsening factors noted.Patient remains compliant with all her medications.Patient started on IV fluids and received Zofran in route by ambulance. Review of Systems Constitutional: denies: Fever GI: reports: Abdominal Pain, Nausea, Vomiting, Diarrhea PD PAST MEDICAL HISTORY - Past Medical History Cardiovascular: Hypertension Endocrine/Autoimmune: Type 2 diabetes, HyPOthyroidism - Past Surgical History Past Surgical History: Yes General: Cholecystectomy HEENT: Cataracts - Present Medications Home Medications: Ambulatory Orders Medication Instructions Recorded Confirmed RX: Amlodipine Besylate 10 mg PO DAILY 04/26/15 03/17/17 RX: Fexofenadine HCl 180 mg PO DAILY 04/26/15 03/17/17 RX: Levothyroxine [Synthroid] 100 mcg PO QDAC 04/26/15 03/17/17 RX: Losartan [Cozaar] 100 mg PO DAILY 04/26/15 03/17/17 RX: Omeprazole [PriLOSEC] 20 mg PO DAILY 04/26/15 03/17/17 RX: Simvastatin 20 mg PO QPM 04/26/15 03/17/17 RX: ALPRAZolam [Alprazolam] 0.25 mg PO DAILY PRN 01/02/16 03/17/17 RX: Cyanocobalamin (Vitamin B-12) 1,000 mcg PO DAILY 01/02/16 03/17/17 [Vitamin B-12] Hydrocortisone Acetate [Anucort-Hc] 25 mg RC DAILY #5 supp.rect 03/17/17 Phenazopyridine [Pyridium] 100 mg PO TID PRN #15 tablet 03/17/17 RX: Metoprolol Tartrate 1 tab PO DAILY 03/17/17 03/17/17 Ciprofloxacin HCl [Cipro] 500 mg PO BID #14 tablet 08/14/18 Ondansetron Odt [Zofran] 4 mg TL Q6H PRN #10 tablet 08/14/18 - Allergies Allergies/Adverse Reactions: Allergies Allergy/AdvReac Type Severity Reaction Status Date / Time ciprofloxacin HCl * AdvReac Unknown Emesis Verified 08/13/18 21:17 [From Cipro] - Social History Does the pt smoke?: No Smoking Status: Never smoker Does the pt drink ETOH?: Yes Does the pt have substance abuse?: No PD ED PE NORMAL - General General: Alert and oriented X 3, No acute distress, Well developed/nourished - HEENT HEENT: Moist mucous membranes, Pharynx benign - Cardiac Cardiac: RRR, No murmur - Respiratory Respiratory: No respiratory distress, Clear bilaterally - Abdomen Abdomen: Normal bowel sounds, Soft, Non tender, Non distended - Derm Derm: Normal color, Warm and dry, No rash - Extremities Extremities: No deformity, No tenderness to palpate - Neuro Neuro: Alert and oriented X 3, No motor deficit, No sensory deficit - Psych Psych: Normal mood, Normal affect Results - Vitals Vitals: Vital Signs - 24 hr 08/13/18 08/13/18 21:12 23:46 Temperature 37 C Heart Rate 84 86 Respiratory 18 16 Rate Blood Pressure 145/61 H 129/55 L O2 Saturation 96 94 Oxygen O2 Source Room air - Labs Labs: Laboratory Tests 08/13/18 08/13/18 08/13/18 21:30 21:30 21:45 WBC 9.7 RBC 4.17 L Hgb 12.0 Hct 36.1 L MCV 86.6 MCH 28.8 MCHC 33.3 RDW 13.6 Plt Count 310 MPV 7.0 L Neut # (Auto) 7.0 H Lymph # (Auto) 1.3 L [place] # (Auto) 1.2 H Eos # (Auto) 0.2 Baso # (Auto) 0.0 Absolute Nucleated RBC 0.00 Nucleated RBC % 0.0 Sodium 132 L Potassium 3.3 L Chloride 100 L Carbon Dioxide 22 Anion Gap 10.0 BUN 9 Creatinine 0.4 Estimated GFR (MDRD) 151 Glucose 123 H Calcium 8.3 L Total Bilirubin 0.5 AST 39 ALT 84 H Alkaline Phosphatase 81 Total Protein 6.5 L Albumin 3.5 Globulin 3.0 Albumin/Globulin Ratio 1.2 Lipase 19 L Urine Color YELLOW Urine Clarity HAZY Urine pH 6.0 Ur Specific [place] <=1.005 Urine Protein NEGATIVE Urine Glucose (UA) NEGATIVE Urine Ketones NEGATIVE Urine Occult Blood NEGATIVE Urine Nitrite NEGATIVE Urine Bilirubin NEGATIVE Urine Urobilinogen 0.2 (NORMAL) Ur Leukocyte Esterase MODERATE H Urine RBC 0-5 Urine WBC 6-10 H Ur Squamous Epith Cells FEW Squamous Urine Bacteria Rare Urine Mucus Few Strands Ur Microscopic Review INDICATED Urine Culture Comments INDICATED PD MEDICAL DECISION MAKING - ED course Complexity details: reviewed old records, reviewed results, re-evaluated patient, considered differential, d/w patient ED course: Feel the patient's symptoms are likely related to viral illness or food poisoning given patient's multiple recent sick contacts with similar symptoms. Patient has had cholecystectomy, making gallbladder disease also less likely. Additionally, abdominal exam is extremely benign and have low suspicion for appendicitis, small bowel obstruction, diverticulitis, or other complication. Patient denies urinary symptoms and have low suspicion for renal disease or UTI at this time. Patient symptoms of vomiting have nearly resolved and she otherwise received Zofran in route. Patient's moods significant concern is her persistent diarrhea. Patient last took Imodium yesterday and feel this could be helpful to her symptoms today. However, at this time, we will not give Imodium as would like patient have a stool in the ER so that it can be sent for testing if possible, although feel that parasitic, C. difficile, or other infectious diarrhea is less likely.Patient did not require pain medications while in ED. Obtained screening lab work, urinalysis, and CT abdomen/pelvis.Screening lab work returning relatively unremarkable, however, urinalysis concerning for infection. CT abdomen/pelvis also returned without evidence of acute disease. Feel that patient could be experiencing multiple issues including viral versus food poisoning component of GI symptoms, as well as UTI. Discussed these results and recommendations with patient and family. Discussed use of antibiotics, as well as Zofran for home, as well as other supportive cares, return precautions, and follow-up. Both voiced understanding and are comfortable with discharge plan. Departure - Departure Disposition: 01 Home, Self Care Clinical Impression: Urinary tract infection, Vomiting, Abdominal pain Condition: Good Instructions: ED UTI Cystitis Female, ED Nausea Vomiting Follow-Up: Romel Cavanaugh MD [Primary Care Provider] - Within 3 Days Prescriptions: Ciprofloxacin HCl [Cipro] 500 mg PO BID #14 tablet Ondansetron Odt [Zofran] 4 mg TL Q6H PRN #10 tablet PRN Reason: Nausea / Vomiting Comments: Please use Zofran as prescribed to help reduce nausea and vomiting. Recommend hydration with Powerade/Gatorade and bland diet, advancing as tolerated. Please take ciprofloxacin for likely bladder infection. Recommend taking with food to avoid upset stomach. May use Imodium as prescribed on box to help stop diarrhea. Please follow-up with your primary care physician next 2 to 3 days and return to ED sooner if expands worsening symptoms or other concerns. Discharge Date/Time: 08/14/18 00:58
[2018-08-13 21:34] LABS: BASOPHILS % (AUTO) 0.4 %; EOSINOPHILS # (AUTO) 0.2 10^3/uL (0.0-0.7); EOSINOPHILS % (AUTO) 1.7 %; LYMPHOCYTES # (AUTO) 1.3 10^3/uL (1.5-3.5); LYMPHOCYTES % (AUTO) 13.8 %; MEAN CORPUSCULAR HEMOGLOBIN 28.8 pg (27.0-31.0); MEAN CORPUSCULAR HGB CONC 33.3 g/dL (32.0-36.0); MEAN CORPUSCULAR VOLUME 86.6 fL (81.0-99.0); MONOCYTES # (AUTO) 1.2 10^3/uL (0.0-1.0); MONOCYTES % (AUTO) 12.2 %; NEUTROPHILS % (AUTO) 71.9 %; PLT - PLATELET COUNT 310 10^3/uL (130-450); RED BLOOD COUNT 4.17 10^6/uL (4.20-5.40); RED CELL DISTRIBUTION WIDTH 13.6 % (12.0-15.0); WHITE BLOOD COUNT 9.7 x10^3/uL (4.8-10.8)
[2018-08-13 21:48] LABS: BILIRUBIN,URINE NEGATIVE (NEGATIVE); GLUCOSE, URINE (UA) NEGATIVE (NEGATIVE); KETONES,URINE (UA) NEGATIVE (NEGATIVE); LEUKOCYTE ESTERASE, URINE MODERATE (NEGATIVE); NITRITE,URINE NEGATIVE (NEGATIVE); OCCULT BLOOD,URINE NEGATIVE (NEGATIVE); PROTEIN,URINE NEGATIVE (NEGATIVE); UROBILINOGEN,URINE 0.2 (NORMAL) E.U./dL (NORMAL)
[2018-08-13 21:55] LABS: ALBUMIN 3.5 g/dL (3.2-5.5); ALBUMIN/GLOBULIN RATIO 1.2 (1.0-2.2); BILIRUBIN,TOTAL 0.5 mg/dL (0.2-1.0); CALCIUM 8.3 mg/dL (8.5-10.3); CREATININE 0.4 mg/dL (0.4-1.0); TOTAL PROTEIN 6.5 g/dL (6.7-8.2)
[2018-08-13 21:58] LABS: BACTERIA,URINE Rare /HPF (None Seen); CLARITY,URINE HAZY (CLEAR); MUCUS,URINE Few Strands; RBC,URINE 0-5 /HPF (0-5); SQUAMOUS EPITHELIAL CELL,UR FEW Squamous (<= Few)
[2018-08-13] MEDS ORDERED: IOVERSOL 320 100 ML VIAL IVP ONE ×2 (23:16→23:52)
[2018-08-13 23:47] VITALS: BP 129/55
--- NOTE | 2018-08-14 00:13 | CT Report ---
Reason: several days n/v/f, low diffuse pain Procedure Date: 08/13/2018 Accession Number: [id number] / [id number] Procedure: CT - Abdomen/Pelvis W CPT Code: FULL RESULT: EXAM: CT ABDOMEN AND PELVIS EXAM DATE: 08/13/2018 11:34 PM. CLINICAL HISTORY: Several day history of nausea, vomiting, lower abdominal pain and diarrhea. COMPARISONS: ABDOMEN/PELVIS W/ 08/08/2015 10:55 AM ABDOMEN COMPLETE 05/18/2016 8:38 AM PELVIC W/TRANSVAGINAL 05/14/2016 11:16 AM. TECHNIQUE: Routine helical CT imaging was performed through the abdomen and pelvis. IV contrast: 100 ML OPTIRAY 320. Enteric contrast: No. Reconstructions: Coronal and sagittal. In accordance with CT protocol optimization, one or more of the following dose reduction techniques were utilized for this exam: automated exposure control, adjustment of mA and/or KV based on patient size, or use of iterative reconstructive technique. FINDINGS: ABDOMEN: Liver: No significant abnormality. Stomach/Distal Esophagus: No significant abnormality. Gallbladder: Surgically absent. Bile Ducts: Mild CBD prominence with tapering distally, representing postcholecystectomy physiology. Pancreas: No significant abnormality. Spleen: No significant abnormality. Kidneys: No suspicious solid appearing lesion. A few scattered small subcentimeter low-density foci are present, too small to accurately characterize at this time. No hydronephrosis. Adrenals: There is a left adrenal nodule, that measures 1.8 x 1.5 cm (image 33 series 3). Previously it measured 1.7 x 1.4 cm. The slight difference could be secondary to differences in technique. Bowel: No obstruction. Fluid throughout the colon is noted, suggestive of a diarrheal event. However, there are no definite findings to indicate acute colitis on this examination. No definite small bowel obstruction is demonstrated either. Appendix: Small appendix, normal in appearance. Lymph Nodes: No pathologically enlarged nodes. Vasculature: Normal caliber aorta. Moderate to severe aortic and branch atherosclerosis. Fluid: No significant free fluid. Abdominal Wall: No significant abnormality. Other: No significant abnormality. PELVIS: Uterus and Ovaries: Small postmenopausal uterus. There is a uterine leiomyoma, with coarse calcification. Physiologic postmenopausal appearance of the ovaries bilaterally. Bladder: Tiny gas bubble within the bladder, probably a sequela of instrumentation. Lymph Nodes: No pathologically enlarged nodes. Fluid: No significant free fluid. Other: None. BONES: No suspicious bony lesions. However, bones are at least moderately osteopenic. This reduces exam sensitivity and specificity for detection of subtle bony lesions and/or fractures. There is moderate to severe degenerative change within the spine. There are old healed left superior as well as inferior pubic rami fractures. There is right convex scoliosis of the lumbar spine. LOWER CHEST: Mild bibasilar atelectasis. No significant consolidation or effusion. Mitral annular calcifications. IMPRESSION: 1. Fluid within the colon, suggesting a diarrheal event. No definite CT findings to indicate acute colitis on this exam. 2. There is no evidence of bowel obstruction. 3. Prior cholecystectomy. No kidney stone or hydronephrosis. RADIA
== END 2018-08-14 00:58 | disposition home or self-care (01) ==
LOC: EDUNIT# → ED 21:10
DX: N39.0 Urinary tract infection, site not specified (principal); R11.10 Vomiting, unspecified; R10.9 Unspecified abdominal pain; I10 Essential (primary) hypertension; E11.9 Type 2 diabetes mellitus without complications; E03.9 Hypothyroidism, unspecified
CPT/HCPCS: 36415; 74177; 80053; 81001; 83690; 85025; 87086; 90471; 99283; Q9967; 81003

== ENCOUNTER 2018-09-27 08:00 | Outpatient (CLI) | payer MEDICARE, OTHER | END 2018-09-27 23:59 | disposition home or self-care (01) | LOC: LAB.R 08:00 | PROVIDERS: ATTEND Physician Assistant Medical | DX: J02.9 Acute pharyngitis, unspecified (principal) | CPT/HCPCS: 87070 ==

== ENCOUNTER 2018-10-07 08:16 | Outpatient (CLI) | payer MEDICARE, OTHER ==
[2018-10-07 09:59] LABS: BASOPHILS # (AUTO) 0.1 10^3/uL (0.0-0.1); EOSINOPHILS # (AUTO) 0.2 10^3/uL (0.0-0.7); EOSINOPHILS % (AUTO) 2.7 %; HGB - HEMOGLOBIN 13.3 g/dL (12.0-16.0); LYMPHOCYTES # (AUTO) 2.6 10^3/uL (1.5-3.5); LYMPHOCYTES % (AUTO) 34.2 %; MEAN CORPUSCULAR HEMOGLOBIN 28.1 pg (27.0-31.0); MEAN CORPUSCULAR HGB CONC 31.7 g/dL (32.0-36.0); MEAN CORPUSCULAR VOLUME 88.4 fL (81.0-99.0); MEAN PLATELET VOLUME 9.5 fL (7.9-10.8); NEUTROPHILS # (AUTO) 3.7 10^3/uL (1.5-6.6); NEUTROPHILS % (AUTO) 48.8 %; PLT - PLATELET COUNT 385 10^3/uL (130-450); RED BLOOD COUNT 4.74 10^6/uL (4.20-5.40); RED CELL DISTRIBUTION WIDTH 13.2 % (12.0-15.0); WHITE BLOOD COUNT 7.6 x10^3/uL (4.8-10.8)
[2018-10-07 10:21] LABS: HB2 TOTAL 14.5 g/dL; HEMOGLOBIN A1C 0.73 g/dL; HEMOGLOBIN A1C % 6.8 % (4.6-6.2)
[2018-10-07 10:22] LABS: ALBUMIN/GLOBULIN RATIO 1.2 (1.0-2.2); ALKALINE PHOSPHATASE 70 IU/L (42-121); ALT ALANINE AMINOTRANSFERASE 23 IU/L (10-60); AST ASPARTATE AMINOTRANSFERASE 23 IU/L (10-42); BILIRUBIN,TOTAL 0.8 mg/dL (0.2-1.0); BUN - BLOOD UREA NITROGEN 15 mg/dL (6-20); CALCIUM 9.3 mg/dL (8.5-10.3); CARBON DIOXIDE - CO2 26 mmol/L (21-32); CHLORIDE 98 mmol/L (101-111); CHOL/HDL RATIO 3.4 (<4.4); CHOLESTEROL 136 mg/dL; CREATININE 0.5 mg/dL (0.4-1.0); GFR - MDRD 116 (>89); GLUCOSE 120 mg/dL (70-100); HDL CHOLESTEROL 40 mg/dL; LDL CHOLESTEROL,CALCULATED 71 mg/dL; LDL/HDL RATIO 1.8 (<4.4); SODIUM 135 mmol/L (135-145); TOTAL PROTEIN 7.3 g/dL (6.7-8.2); VLDL CHOLESTEROL 25 mg/dL
== END 2018-10-07 08:17 | disposition home or self-care (01) ==
LOC: LAB.F 08:16
PROVIDERS: ATTEND Internal Medicine
DX: E78.5 Hyperlipidemia, unspecified (principal); R73.01 Impaired fasting glucose; E03.9 Hypothyroidism, unspecified
CPT/HCPCS: 36415; 80053; 80061; 83036; 83721; 84443; 85025

== ENCOUNTER 2019-04-17 15:10 | Outpatient (CLI) | payer MEDICARE, OTHER | END 2019-04-17 23:59 | disposition home or self-care (01) | LOC: LAB.R 15:10 | PROVIDERS: ATTEND Physician Assistant Medical | DX: N30.90 Cystitis, unspecified without hematuria (principal) | CPT/HCPCS: 87086; 87181 ==

== ENCOUNTER 2019-07-23 10:42 | Outpatient (CLI) | payer MEDICARE, OTHER ==
[2019-07-23 11:13] LABS: BILIRUBIN,URINE NEGATIVE (NEGATIVE); GLUCOSE, URINE (UA) NEGATIVE (NEGATIVE); KETONES,URINE (UA) NEGATIVE (NEGATIVE); LEUKOCYTE ESTERASE, URINE NEGATIVE (NEGATIVE); NITRITE,URINE NEGATIVE (NEGATIVE); OCCULT BLOOD,URINE NEGATIVE (NEGATIVE); PH,URINE 6.5 PH (5.0-7.5); PROTEIN,URINE NEGATIVE (NEGATIVE); UROBILINOGEN,URINE 0.2 (NORMAL) E.U./dL (NORMAL)
[2019-07-23 11:14] LABS: CLARITY,URINE CLEAR (CLEAR)
== END 2019-07-23 10:43 | disposition home or self-care (01) ==
LOC: LAB 10:42
PROVIDERS: ATTEND Nurse Practitioner
DX: R30.0 Dysuria (principal)
CPT/HCPCS: 81001; 81003; 87086

== ENCOUNTER 2019-09-19 07:37 | Outpatient (CLI) | payer MEDICARE, OTHER ==
[2019-09-19 08:16] LABS: BASOPHILS # (AUTO) 0.1 10^3/uL (0.0-0.1); BASOPHILS % (AUTO) 1.3 %; EOSINOPHILS # (AUTO) 0.2 10^3/uL (0.0-0.7); EOSINOPHILS % (AUTO) 2.7 %; HGB - HEMOGLOBIN 13.5 g/dL (12.0-16.0); LYMPHOCYTES # (AUTO) 2.1 10^3/uL (1.5-3.5); LYMPHOCYTES % (AUTO) 28.7 %; MEAN CORPUSCULAR HEMOGLOBIN 28.8 pg (27.0-31.0); MEAN CORPUSCULAR HGB CONC 33.3 g/dL (32.0-36.0); MEAN CORPUSCULAR VOLUME 86.8 fL (81.0-99.0); MONOCYTES # (AUTO) 0.9 10^3/uL (0.0-1.0); MONOCYTES % (AUTO) 12.9 %; NEUTROPHILS # (AUTO) 3.9 10^3/uL (1.5-6.6); PLT - PLATELET COUNT 381 10^3/uL (130-450); RED BLOOD COUNT 4.68 10^6/uL (4.20-5.40); RED CELL DISTRIBUTION WIDTH 12.2 % (12.0-15.0); WHITE BLOOD COUNT 7.2 x10^3/uL (4.8-10.8)
[2019-09-19 08:30] LABS: ALBUMIN 4.1 g/dL (3.2-5.5); ALBUMIN/GLOBULIN RATIO 1.1 (1.0-2.2); ALKALINE PHOSPHATASE 66 IU/L (42-121); ALT ALANINE AMINOTRANSFERASE 23 IU/L (10-60); AST ASPARTATE AMINOTRANSFERASE 21 IU/L (10-42); BILIRUBIN,TOTAL 0.6 mg/dL (0.2-1.0); BUN - BLOOD UREA NITROGEN 17 mg/dL (6-20); CALCIUM 9.5 mg/dL (8.5-10.3); CARBON DIOXIDE - CO2 24 mmol/L (21-32); CHLORIDE 100 mmol/L (101-111); CHOL/HDL RATIO 3.6 (<4.4); CHOLESTEROL 151 mg/dL; CREATININE 0.5 mg/dL (0.4-1.0); GLUCOSE 145 mg/dL (70-100); HDL CHOLESTEROL 42 mg/dL; LDL CHOLESTEROL,CALCULATED 78 mg/dL; LDL/HDL RATIO 1.9 (<4.4); SODIUM 134 mmol/L (135-145); TOTAL PROTEIN 7.7 g/dL (6.7-8.2); VLDL CHOLESTEROL 31 mg/dL
[2019-09-19 08:32] LABS: HB2 TOTAL 14.6 g/dL; HEMOGLOBIN A1C 0.79 g/dL; HEMOGLOBIN A1C % 7.1 % (4.6-6.2)
[2019-09-19 10:27] LABS: FREE T4 (FREE THYROXINE) 1.09 ng/dL (0.58-1.64)
== END 2019-09-19 07:38 | disposition home or self-care (01) ==
LOC: LAB 07:37
PROVIDERS: ATTEND Nurse Practitioner
DX: I10 Essential (primary) hypertension (principal); R73.02 Impaired glucose tolerance (oral); E78.5 Hyperlipidemia, unspecified; E03.9 Hypothyroidism, unspecified; E87.1 Hypo-osmolality and hyponatremia
CPT/HCPCS: 36415; 80053; 80061; 82306; 82607; 83036; 83721; 84439; 84443; 85025

== ENCOUNTER 2019-09-20 11:35 | Emergency (ER) | payer MEDICARE, OTHER ==
[2019-09-20 12:20] VITALS: BP 160/68
--- NOTE | 2019-09-20 12:54 | ED Physician Documentation ---
History of Present Illness - Stated complaint Stated Complaint: R HIP PX - Chief complaint Chief Complaint: Ext Problem - History obtained from History obtained from: Patient - History of Present Illness Timing: Prior to arrival, Today Pain level max: 8 Pain level now: 4 Quality: sharp; non radiating Improved by: ice, rest - Additonal information Additional information: 89 year old female here with cc of acute onset right hip pain this am. non traumatic, no fevers. 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 states she has been cleaning her house more than normal. Has not taken anything for pain. Pt coincidentally has full serum chemistry draw through her pcp yesterday. no worrisome abnormalities pt denies dysuria, hematuria, urinary urgency Review of Systems Constitutional: denies: Fever, Chills, Myalgias, Fatigue, Weight Loss Throat: denies: Dental pain / toothache, Oral lesions / sores Cardiac: denies: Chest pain / pressure, Palpitations, Pedal edema, Calf pain Respiratory: denies: Dyspnea, Cough, Hemoptysis GI: denies: Abdominal Pain, Abdominal Swelling : denies: Dysuria, Frequency, Hesitancy Skin: denies: Rash, Lesions Musculoskeletal: reports: Back pain, Joint pain Neurologic: denies: Generalized weakness, Focal weakness, Numbness, Difficulty speaking Endocrine: denies: Polydypsia, Polyuria PD PAST MEDICAL HISTORY - Past Medical History Cardiovascular: Hypertension Respiratory: None Neuro: None Endocrine/Autoimmune: Type 2 diabetes, HyPOthyroidism GI: None 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 : None HEENT: None Psych: None Musculoskeletal: None Derm: None - Past Surgical History Past Surgical History: Yes General: Cholecystectomy HEENT: Cataracts - Present Medications Home Medications: Ambulatory Orders Medication Instructions Recorded Confirmed Amlodipine Besylate 10 mg PO DAILY 04/26/15 03/17/17 Fexofenadine HCl 180 mg PO DAILY 04/26/15 03/17/17 Levothyroxine [Synthroid] 100 mcg PO QDAC 04/26/15 03/17/17 Losartan [Cozaar] 100 mg PO DAILY 04/26/15 03/17/17 Omeprazole [PriLOSEC] 20 mg PO DAILY 04/26/15 03/17/17 Simvastatin 20 mg PO QPM 04/26/15 03/17/17 ALPRAZolam [Alprazolam] 0.25 mg PO DAILY PRN 01/02/16 03/17/17 Cyanocobalamin (Vitamin B-12) 1,000 mcg PO DAILY 01/02/16 03/17/17 [Vitamin B-12] Hydrocortisone Acetate [Anucort-Hc] 25 mg RC DAILY #5 supp.rect 03/17/17 Metoprolol Tartrate 1 tab PO DAILY 03/17/17 03/17/17 Phenazopyridine [Pyridium] 100 mg PO TID PRN #15 tablet 03/17/17 Ciprofloxacin HCl [Cipro] 500 mg PO BID #14 tablet 08/14/18 Ondansetron Odt [Zofran] 4 mg TL Q6H PRN #10 tablet 08/14/18 Acetaminophen [Tylenol Extra 500 mg PO QID PRN #30 tablet 09/20/19 Strength] - Allergies Allergies/Adverse Reactions: Allergies Allergy/AdvReac Type Severity Reaction Status Date / Time ciprofloxacin HCl * AdvReac Unknown Emesis Verified 09/20/19 11:51 [From Cipro] - Social History Does the pt smoke?: No Smoking Status: Never smoker Does the pt drink ETOH?: Yes Does the pt have substance abuse?: No - Immunizations Immunizations are current?: Yes - POLST Patient has POLST: No PD ED PE NORMAL - Vitals Vital signs reviewed: Yes - General General: Alert and oriented X 3, No acute distress, Well developed/nourished - HEENT HEENT: Atraumatic, PERRL - Neck Neck: No adenopathy - Cardiac Cardiac: RRR, No murmur - Respiratory Respiratory: No respiratory distress, Clear bilaterally - Abdomen Abdomen: Normal bowel sounds, Non tender, Non distended - Back Back: No CVA TTP, Other (mild tenderness across the right lower paraspinous muscles; no focal midline sponous process tenderness. Right hip with full ROM to internal and external rotation. no clicick. no swelling, erythema. no leg shortening. able to stand and bear full weight on righ thip. normal gait. ) Results - Vitals Vitals: Vital Signs - 24 hr 09/20/19 09/20/19 11:52 12:20 Temperature 36.6 C Heart Rate 79 Respiratory 17 Rate Blood Pressure 160/68 H O2 Saturation 97 Oxygen O2 Source Room air - Labs Labs: Laboratory Tests 09/20/19 13:20 Urine Color YELLOW Urine Clarity CLEAR Urine pH 7.0 Ur Specific [place] <=1.005 Urine Protein NEGATIVE Urine Glucose (UA) NEGATIVE Urine Ketones NEGATIVE Urine Occult Blood NEGATIVE Urine Nitrite NEGATIVE Urine Bilirubin NEGATIVE Urine Urobilinogen 0.2 (NORMAL) Ur Leukocyte Esterase NEGATIVE Ur Microscopic Review NOT INDICATED - Rads (name of study) pelvic CT Radiology: Final report received (1. Subtle cortical disruption and a step-off involving superior right femoral neck subcapital region concerning for a subtle nondisplaced right femoral neck fracture.) lumbar CT Radiology: Final report received (degenerative changes at L4L5 but no acute pathology) PD MEDICAL DECISION MAKING - ED course ED course: 89 year old female presents to the ED with cc of non traumatic right hip pain. - CT lumbar and Pelvic completed. Pelvic CT concerning for possible subcapital femoral neck fracture. I asked Dr. Sosa on orthopedics to consult and evaluate pt for possible admission/correction of fracture - I reviewed the patients routine labs which had been ordered by pcp yesterday and there were no worrisome abnormalities. therefore no serum obtained today. I did obtain a urien to r/o infection and there is no e/o infection in todays UA - after he evaluated pt, he feels that tpt DOES NOT have a hip fracture and is stable to go home. She may f/u with orthopedics office for reevaluation if the pain persists - recommend heat/ice and tylenol for analgesia. - pt appears very well, clinically stable and normal gait without assistance - Consults Consults: Consulted (name) (James Deras), Request gis consultant evaluate patient Departure - Departure Disposition: 01 Home, Self Care Clinical Impression: Acute right hip pain Condition: Good Instructions: ED Pain Control Ch Follow-Up: John Sosa MD [Provider Admit Priv/Credential] - Within 1 week Chani Cain ARNP, ASSURANCE SENIOR MANAGER INSURANCE-[employer] [Primary Care Provider] - Within 1 week Prescriptions: Acetaminophen [Tylenol Extra Strength] 500 mg PO QID PRN #30 tablet PRN Reason: Pain Comments: [place], The CT scan was concerning for a possible right hip fracture. Dr. sosa has evaluated you and does not feel that a fracture exists at this time. Please ice the hip and take tylenol at home. IF your pain is worsening, you have fevers, any falls or can not ambulate normally, then please return for a second evaluation I would like you to see your primary doctor in follow up in the next week to ensure that your symptoms are resolving
[2019-09-20] MEDS ORDERED: KETOROLAC 30 MG/ML VIAL IVP STA (13:04)
[2019-09-20] MEDS: KETOROLAC 30 MG/ML VIAL IM STA (13:26)
[2019-09-20 13:27] LABS: BILIRUBIN,URINE NEGATIVE (NEGATIVE); GLUCOSE, URINE (UA) NEGATIVE (NEGATIVE); KETONES,URINE (UA) NEGATIVE (NEGATIVE); LEUKOCYTE ESTERASE, URINE NEGATIVE (NEGATIVE); NITRITE,URINE NEGATIVE (NEGATIVE); OCCULT BLOOD,URINE NEGATIVE (NEGATIVE); PROTEIN,URINE NEGATIVE (NEGATIVE); UROBILINOGEN,URINE 0.2 (NORMAL) E.U./dL (NORMAL)
[2019-09-20 13:30] LABS: CLARITY,URINE CLEAR (CLEAR)
--- NOTE | 2019-09-20 14:13 | CT Report ---
Reason: acute right hip pain. rule out fracture Procedure Date: 09/20/2019 Accession Number: [id number] / [id number] Procedure: CT - PELVIS WO CPT Code: Final Report FULL RESULT: PROCEDURE: PELVIS WO INDICATIONS: acute right hip pain. rule out fracture CONTRAST: None TECHNIQUE: 5 mm thick sections acquired from the iliac crests to the symphysis. 5 mm thick coronal and sagittal reformats were acquired. For radiation dose reduction, the following was used: automated exposure control, adjustment of mA and/or kV according to patient size. COMPARISON: CT of abdomen and pelvis dated 08/13/2018 FINDINGS: Image quality: Diagnostic. Motion artifacts are noted.. Peritoneum and bowel: There is normal bowel wall thickness and caliber. No free fluid or air. Sigmoid diverticulosis is seen, no evidence of acute diverticulitis. Genitourinary: Bladder wall thickness is normal. Nodes and vessels: No iliac, pelvic, or inguinal adenopathy. Iliac vessels demonstrate normal size and enhancement. Bones: Old healed fractures involving the left superior and inferior pubic rami are seen unchanged from 2019 study. Moderate bilateral hip joint osteoarthritic changes are noted. Subtle cortical step off involving superior aspect of right femoral neck subcapital region suspicious for a subtle nondisplaced right femoral neck fracture. This is a new finding since 2019 study. No evidence of avascular necrosis of femoral head is seen. No other fracture or dislocation is noted. No suspicious intraosseous lesion. Osteoarthritic changes are noted in bilateral sacroiliac joints and symphysis pubis. Degenerative disc disease in the visualized lower lumbar spine is also seen. Miscellaneous: No inguinal hernias. IMPRESSION: 1. Subtle cortical disruption and a step-off involving superior right femoral neck subcapital region concerning for a subtle nondisplaced right femoral neck fracture. 2. Old healed fractures involving left superior and inferior pubic rami unchanged from 2019 study. 3. Osteoarthritic changes throughout bony pelvis. No other fracture or dislocation. No evidence of avascular necrosis of femoral head. 4. No gross soft tissue abnormality. No pelvic free fluid or free air. Reviewed by: Sim Barrios MD on 09/20/2019 2:12 PM PDT Approved by: Sim Barrios MD on 09/20/2019 2:12 PM PDT Station ID: [id number]
--- NOTE | 2019-09-20 14:15 | CT Report ---
Reason: lumbar/right hip pain Procedure Date: 09/20/2019 Accession Number: [id number] / [id number] Procedure: CT - LUMBAR SPINE WO CPT Code: Final Report FULL RESULT: PROCEDURE: LUMBAR SPINE WO INDICATIONS: lumbar/right hip pain TECHNIQUE: Noncontrast 3 mm thick sections acquired from the T12 level to the sacrum. Sagittal and coronal reformats were constructed. For radiation dose reduction, the following was used: automated exposure control, adjustment of mA and/or kV according to patient size. COMPARISON: Correlation is made with prior abdomen and pelvis CT 08/13/2018. Correlation is also made with pelvis CT 09/20/2019. FINDINGS: Image quality: Excellent. Bones: There is mild to moderate dextroconvex scoliosis seen. There is minimal retrolisthesis seen at the L1-L2 level. Mild anterolisthesis is seen at L3-L4 and L4-L5. Minimal anterolisthesis is seen at L5-S1. No acute vertebral body compression fractures. No suspicious lytic or blastic bony lesions. Several chronic appearing Schmorl's nodes are seen. Central spinal caliber is of normal overall caliber. No pars defects. T12-L1: The disc height is well-preserved. Mild disc bulge is seen. No significant neural foraminal or central canal narrowing can be seen. L1-L2: Mild loss of disc height is seen. Endplate irregularity and sclerosis can be seen. Moderate facet hypertrophy is seen. There is moderate right-sided and mild to moderate left-sided neuroforaminal narrowing seen. Mild central canal narrowing is seen. L2-L3: The disc height is well-preserved. Moderate disc bulge is seen, which is eccentric to the right. At least moderate facet hypertrophy is seen. Mild to moderate bilateral neuroforaminal narrowing is seen. Moderate central canal narrowing is seen. L3-L4: The disc height is relatively well preserved. Vacuum disc phenomenon is seen at this level. Moderate disc bulge is seen, which is eccentric to the left. Moderate to prominent facet hypertrophy is seen. There is at least moderate right-sided and moderate to severe left-sided neuroforaminal narrowing seen. Moderate to severe central canal narrowing is seen, as on series 3 image 42. L4-L5: Mild to moderate loss of disc height is seen. Vacuum disc phenomenon is seen at this level. Endplate irregularity and sclerosis can be seen. Posteriorly directed endplate osteophytes are seen. Moderate to prominent facet hypertrophy is seen. Associated hypertrophy of the ligamentum flavum flavum can be seen. Moderate to severe bilateral neuroforaminal narrowing is seen, right worse than left. Moderate to severe central canal narrowing is seen. L5-S1: Mild to moderate loss of disc height is seen. Vacuum disc phenomenon is seen at this level. At least moderate disc bulge is seen. Posteriorly directed endplate osteophytes are seen. There is moderate to prominent right-sided and moderate left-sided neuroforaminal narrowing seen. At least moderate bilateral neuroforaminal narrowing is seen, right worse than left. Mild to moderate central canal narrowing is seen. Soft tissues: No retroperitoneal masses or hematomas. Visualized aorta is normal in caliber. Atherosclerotic calcification is seen. There is a calcified uterine fibroid seen posteriorly, as on series 3 image 89. IMPRESSION: Multiple levels of lumbar spine degenerative change are seen, which are overall most prominent at the L4-L5 level. Mild to moderate dextroconvex scoliosis. No acute abnormality is detected. Reviewed by: Sebas Maurice MD on 09/20/2019 1:14 PM DINA Approved by: Sebas Maurice MD on 09/20/2019 1:14 PM DINA Station ID: [id number]
--- NOTE | 2019-09-20 15:34 | CONSULTATION NOTE ---
Chief Complaint - Chief Complaint Chief Complaint: Right posterior lumbar pain History of Present Illness - History Obtained From History obtained from: Patient Exam Limitations: Ambulatory - History of Present Illness HPI Comment/Other: Patient is a healthy 89 yo female who awoke this am aft6er doing excessive housework. Ho Fall. Twisted lumbar spine and had pain radiating from right flank No numbwithout radiation abput the level of spinous process L4 or L5. Fully ambulatory. No pain in groin. No history of recent fall but positive osteoporosis. No numbness or tingling. 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 : reports: None HEENT: reports: None Psych: reports: None Musculoskeletal: reports: None Derm: reports: None MRSA Hx?: No - Past Surgical History General: reports: Cholecystectomy HEENT: reports: Cataracts - POLST Patient has POLST: No Meds/Allgy - Home Medications Home Medications: Ambulatory Orders Medication Instructions Recorded Confirmed Amlodipine Besylate 10 mg PO DAILY 04/26/15 03/17/17 Fexofenadine HCl 180 mg PO DAILY 04/26/15 03/17/17 Levothyroxine [Synthroid] 100 mcg PO QDAC 04/26/15 03/17/17 Losartan [Cozaar] 100 mg PO DAILY 04/26/15 03/17/17 Omeprazole [PriLOSEC] 20 mg PO DAILY 04/26/15 03/17/17 Simvastatin 20 mg PO QPM 04/26/15 03/17/17 ALPRAZolam [Alprazolam] 0.25 mg PO DAILY PRN 01/02/16 03/17/17 Cyanocobalamin (Vitamin B-12) 1,000 mcg PO DAILY 01/02/16 03/17/17 [Vitamin B-12] Hydrocortisone Acetate [Anucort-Hc] 25 mg RC DAILY #5 supp.rect 03/17/17 Metoprolol Tartrate 1 tab PO DAILY 03/17/17 03/17/17 Phenazopyridine [Pyridium] 100 mg PO TID PRN #15 tablet 03/17/17 Ciprofloxacin HCl [Cipro] 500 mg PO BID #14 tablet 08/14/18 Ondansetron Odt [Zofran] 4 mg TL Q6H PRN #10 tablet 08/14/18 Acetaminophen [Tylenol Extra 500 mg PO QID PRN #30 tablet 09/20/19 Strength] - Allergies Allergies/Adverse Reactions: Allergies Allergy/AdvReac Type Severity Reaction Status Date / Time ciprofloxacin HCl * AdvReac Unknown Emesis Verified 09/20/19 11:51 [From Cipro] Exam - Vital Signs Vital Signs: Vital Signs x48h Temp Pulse Resp BP Pulse Ox 09/20/19 12:20 160/68 H 09/20/19 11:52 36.6 C 79 17 97 - Physical Exam General Appearance: positive: No acute distress, Alert Eyes Bilateral: positive: PERRL, EOMI ENT: positive: ENT inspection nml Neck: positive: Nml inspection Respiratory: positive: Chest non-tender, No respiratory distress Cardiovascular: positive: Regular rate & rhythm Peripheral Pulses: positive: 1+ Abdomen: positive: Non-tender, No distention Back: positive: CVA tenderness (R) Skin: positive: Color nml, No rash Extremities: positive: Non-tender, Full ROM, Nml appearance, Other (See below) Neurologic/Psychiatric: positive: Oriented x3, CN's nml (2-12), Motor nml, Sensation nml, Mood/affect nml Comments/Other: Her specicic right hip exam reveals she is fully ambulatory, No pain in either hip with logrolling, Mild pain righ posterior lumbar spine. Neg SLR bilateral. Absolutely no pain in either groin with full ROM and logrolling. Conclusion and Plan - Lab Results Laboratory Results 09/20/19 13:20: Urine Color YELLOW, Urine Clarity CLEAR, Urine pH 7.0, Ur Specific [place] <=1.005, Urine Protein NEGATIVE, Urine Glucose (UA) NEGATIVE, Urine Ketones NEGATIVE, Urine Occult Blood NEGATIVE, Urine Nitrite NEGATIVE, Urine Bilirubin NEGATIVE, Urine Urobilinogen 0.2 (NORMAL), Ur Leukocyte Esterase NEGATIVE, Ur Microscopic Review NOT INDICATED - Diagnostic Imaging Results Diagnostic Imaging Results: positive: Final report reviewed, Read contemporaneously, Other (I looked at CT of pelvis and lumbar spine. It was read as a superior cortical disruption of the femoral neck. This does not correlater clinically.) - Diagnosis Diagnosis: Lumbar strain - Plan Plan: Conservative treatment discussed with patient. Full wgt bearing. Ambulate as tolerated. Tylenol as needed for pain, she will f/u with me any time over the next few dsays if symptoms do not reolve or she develops any groin pain.
--- NOTE | 2019-09-20 15:59 | CONSULTATION NOTE ---
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 : reports: None HEENT: reports: None Psych: reports: None Musculoskeletal: reports: None Derm: reports: None MRSA Hx?: No - Past Surgical History General: reports: Cholecystectomy HEENT: reports: Cataracts - POLST Patient has POLST: No Meds/Allgy - Home Medications Home Medications: Ambulatory Orders Medication Instructions Recorded Confirmed Amlodipine Besylate 10 mg PO DAILY 04/26/15 03/17/17 Fexofenadine HCl 180 mg PO DAILY 04/26/15 03/17/17 Levothyroxine [Synthroid] 100 mcg PO QDAC 04/26/15 03/17/17 Losartan [Cozaar] 100 mg PO DAILY 04/26/15 03/17/17 Omeprazole [PriLOSEC] 20 mg PO DAILY 04/26/15 03/17/17 Simvastatin 20 mg PO QPM 04/26/15 03/17/17 ALPRAZolam [Alprazolam] 0.25 mg PO DAILY PRN 01/02/16 03/17/17 Cyanocobalamin (Vitamin B-12) 1,000 mcg PO DAILY 01/02/16 03/17/17 [Vitamin B-12] Hydrocortisone Acetate [Anucort-Hc] 25 mg RC DAILY #5 supp.rect 03/17/17 Metoprolol Tartrate 1 tab PO DAILY 03/17/17 03/17/17 Phenazopyridine [Pyridium] 100 mg PO TID PRN #15 tablet 03/17/17 Ciprofloxacin HCl [Cipro] 500 mg PO BID #14 tablet 08/14/18 Ondansetron Odt [Zofran] 4 mg TL Q6H PRN #10 tablet 08/14/18 - Allergies Allergies/Adverse Reactions: Allergies Allergy/AdvReac Type Severity Reaction Status Date / Time ciprofloxacin HCl * AdvReac Unknown Emesis Verified 09/20/19 11:51 [From Cipro] Exam - Vital Signs Vital Signs: Vital Signs x48h Temp Pulse Resp BP Pulse Ox 09/20/19 12:20 160/68 H 09/20/19 11:52 36.6 C 79 17 97
== END 2019-09-20 15:59 | disposition home or self-care (01) ==
LOC: ED 11:35
DX: S39.012A Strain of muscle, fascia and tendon of lower back, initial encounter (principal); M25.551 Pain in right hip; X50.1XXA Overexertion from prolonged static or awkward postures, initial encounter; Y93.E9 Activity, other interior property and clothing maintenance; M41.86 Other forms of scoliosis, lumbar region; M51.37 Other intervertebral disc degeneration, lumbosacral region; I10 Essential (primary) hypertension; E11.9 Type 2 diabetes mellitus without complications
CPT/HCPCS: 72131; 72192; 81001; 81003; 99284

== ENCOUNTER 2019-11-22 12:00 | Outpatient (CLI) | payer MEDICARE, OTHER ==
[2019-11-22 19:04] LABS: BILIRUBIN,URINE NEGATIVE (NEGATIVE); GLUCOSE, URINE (UA) NEGATIVE (NEGATIVE); KETONES,URINE (UA) NEGATIVE (NEGATIVE); LEUKOCYTE ESTERASE, URINE NEGATIVE (NEGATIVE); NITRITE,URINE NEGATIVE (NEGATIVE); OCCULT BLOOD,URINE NEGATIVE (NEGATIVE); PH,URINE 7.5 PH (5.0-7.5); PROTEIN,URINE NEGATIVE (NEGATIVE); UROBILINOGEN,URINE 0.2 (NORMAL) E.U./dL (NORMAL)
[2019-11-22 19:14] LABS: BACTERIA,URINE None Seen /HPF (None Seen); CLARITY,URINE CLEAR (CLEAR); RBC,URINE 0-5 /HPF (0-5); SQUAMOUS EPITHELIAL CELL,UR FEW Squamous (<= Few)
== END 2019-11-22 23:59 | disposition home or self-care (01) ==
LOC: LAB.R 12:00
PROVIDERS: ATTEND Nurse Practitioner
DX: R35.0 Frequency of micturition (principal)
CPT/HCPCS: 81001; 87086

== ENCOUNTER 2019-12-08 11:37 | Emergency (ER) | payer MEDICARE, OTHER ==
--- NOTE | 2019-12-08 12:00 | ED Physician Documentation ---
PD HPI FOCAL NEURO - Stated complaint Stated Complaint: LOSS OF BALANCE, DIZZY - Chief complaint Chief Complaint: Neuro - History obtained from History obtained from: Patient - History of Present Illness Timing - onset: How many weeks ago (1) Timing - duration: Weeks (1) Timing - details: Abrupt onset (She states she has had some problems with balance and dizziness for few weeks on and off. 1 week ago she noted "electric jolt" feeling in her head and following that has had a feeling of dizziness and incoordination with gait. She denies ataxia with arm movement or discoordination with activity), Still present Severity of deficit: Moderate Weakness: No: Face, Arm, Leg Numbness: No: Face, Arm, Leg Associated symptoms: No: Headache, Nausea / vomiting, Syncope, Head injury Contributing factors: negative: Anticoagulated, Vascular dz Baseline status: positive: A&OX3, ambulatory, indep Similar symptoms before: Has not had sx before Recently seen: Not recently seen Review of Systems Constitutional: denies: Fever, Chills Eyes: denies: Loss of vision, Photophobia Ears: denies: Loss of hearing, Tinnitus/ringing Nose: denies: Rhinorrhea / runny nose, Congestion Throat: denies: Sore throat Cardiac: denies: Chest pain / pressure, Palpitations Respiratory: denies: Dyspnea, Cough GI: denies: Abdominal Pain, Nausea, Vomiting, Diarrhea Skin: denies: Rash, Lesions Neurologic: reports: Other (just the balance problem walking and feeling dizzy with position change.). denies: Focal weakness, Numbness, Difficulty speaking, Confused, Altered mental status, Headache, Head injury PD PAST MEDICAL HISTORY - Past Medical History Past Medical History: Yes Cardiovascular: Hypertension Respiratory: None Neuro: None Endocrine/Autoimmune: Type 2 diabetes, HyPOthyroidism GI: None BUSINESS RELATIONSHIP MANAGER: None : None HEENT: None Psych: None Musculoskeletal: None Derm: None - Past Surgical History Past Surgical History: Yes General: Cholecystectomy HEENT: Cataracts - Present Medications Home Medications: Ambulatory Orders Medication Instructions Recorded Confirmed Amlodipine Besylate 10 mg PO DAILY 04/26/15 03/17/17 Levothyroxine [Synthroid] 100 mcg PO QDAC 04/26/15 03/17/17 Losartan [Cozaar] 100 mg PO DAILY 04/26/15 03/17/17 Omeprazole [PriLOSEC] 20 mg PO DAILY 04/26/15 03/17/17 Simvastatin 20 mg PO QPM 04/26/15 03/17/17 Atorvastatin [Lipitor] 12/08/19 Meclizine [Antivert] 12.5 mg PO BID #30 tablet 12/08/19 dexAMETHasone [Decadron] 4 mg PO DAILY #5 tablet 12/08/19 hydrALAZINE [Apresoline] 12/08/19 - Allergies Allergies/Adverse Reactions: Allergies Allergy/AdvReac Type Severity Reaction Status Date / Time cephalexin Allergy Unknown Verified 12/08/19 11:46 nitrofurantoin Allergy Unknown Verified 12/08/19 11:46 [From Macrobid] ciprofloxacin HCl * AdvReac Unknown Emesis Verified 12/08/19 11:46 [From Cipro] - Social History Does the pt smoke?: No Smoking Status: Never smoker Does the pt drink ETOH?: Yes Does the pt have substance abuse?: No - Immunizations Immunizations are current?: Yes - POLST Patient has POLST: No NIHSS - Level of Consciousness Level of consciousness: (0) Alert, Keenly responsive LOC Questions: (0) Answers both Q's correct LOC Commands: (0) Performs both correctly - Gaze Best Gaze: (0) Normal - Visual Visual: (0) No loss - Facial Palsy Facial Palsy: (0) Normal, symmetrical movement - Motor Arms (both separate) Motor Arm (right): (0) No drift Motor Arm (left): (0) No drift - Motor Legs (both separate) Motor Leg (right): (0) No drift Motor Leg (left): (0) No drift - Limb Ataxia Limb Ataxia: (0) Absent (she can use hands and arms well without fumbling nor ataxia.) - Sensory Sensory: (0) Normal - Best Language Best Language: (0) No aphasia - Dysarthria Dysarthria: (0) Normal - Extinction and Inattention (formally neg Extinction and inattention: (0) No abnormality - Total Score/Results Total Score/Result: 0 Results - Vitals Vitals: Vital Signs - 24 hr 12/08/19 12/08/19 12/08/19 11:43 12:16 12:30 Temperature 36.6 C Heart Rate 80 77 78 Respiratory 16 15 16 Rate Blood Pressure 162/71 H 139/66 H 148/68 H O2 Saturation 99 96 96 12/08/19 12/08/19 12/08/19 13:00 13:30 15:00 Temperature Heart Rate 84 75 93 Respiratory 16 15 16 Rate Blood Pressure 153/69 H 144/80 H 148/67 H O2 Saturation 97 96 97 12/08/19 12/08/19 12/08/19 15:08 15:30 16:00 Temperature 36.6 C 36.7 C Heart Rate 87 80 Respiratory 19 20 Rate Blood Pressure 156/80 H 144/89 H O2 Saturation 96 95 Oxygen O2 Source Room air - Labs Labs: Laboratory Tests 12/08/19 12/08/19 12/08/19 11:50 11:50 12:28 WBC 8.6 RBC 4.51 Hgb 13.4 Hct 40.1 MCV 88.9 MCH 29.7 MCHC 33.4 RDW 12.9 Plt Count 416 MPV 9.1 Neut # (Auto) 5.0 Lymph # (Auto) 2.2 [place] # (Auto) 1.1 H Eos # (Auto) 0.2 Baso # (Auto) 0.1 Absolute Nucleated RBC 0.00 Nucleated RBC % 0.0 ESR 8 Sodium 129 L Potassium 3.9 Chloride 93 L Carbon Dioxide 27 Anion Gap 9.0 BUN 13 Creatinine 0.6 Estimated GFR (MDRD) 94 Glucose 137 H Calcium 9.0 Magnesium 2.2 Total Bilirubin 0.5 AST 21 ALT 22 Alkaline Phosphatase 74 Total Protein 7.5 Albumin 4.3 Globulin 3.2 Albumin/Globulin Ratio 1.3 Lipase 28 Urine Color Urine Clarity Urine pH Ur Specific [place] Urine Protein Urine Glucose (UA) Urine Ketones Urine Occult Blood Urine Nitrite Urine Bilirubin Urine Urobilinogen Ur Leukocyte Esterase Ur Microscopic Review Urine Culture Comments 12/08/19 12:50 WBC RBC Hgb Hct MCV MCH MCHC RDW Plt Count MPV Neut # (Auto) Lymph # (Auto) [place] # (Auto) Eos # (Auto) Baso # (Auto) Absolute Nucleated RBC Nucleated RBC % ESR Sodium Potassium Chloride Carbon Dioxide Anion Gap BUN Creatinine Estimated GFR (MDRD) Glucose Calcium Magnesium Total Bilirubin AST ALT Alkaline Phosphatase Total Protein Albumin Globulin Albumin/Globulin Ratio Lipase Urine Color YELLOW Urine Clarity CLEAR Urine pH 7.0 Ur Specific [place] <=1.005 Urine Protein NEGATIVE Urine Glucose (UA) NEGATIVE Urine Ketones NEGATIVE Urine Occult Blood NEGATIVE Urine Nitrite NEGATIVE Urine Bilirubin NEGATIVE Urine Urobilinogen 0.2 (NORMAL) Ur Leukocyte Esterase NEGATIVE Ur Microscopic Review NOT INDICATED Urine Culture Comments NOT INDICATED - Rads (name of study) brain MRI Radiology: Prelim report reviewed (No CVA, tumors, bleed or other acute process), See rad report PD MEDICAL DECISION MAKING - ED course Complexity details: reviewed results (Blood tests show a chronic mild hyponatremia of 129. Other labs are good. Sed rate is normal. MRI does not show any stroke or tumors or such. Presume therefore inner ear dysfunction. Given the persistence of it over a week, sounds more than just otoliths and will treat as potential labyrinthitis), considered differential (No change in medicines. She had not had any fever illness or headache. We can check electrolytes and blood sugar. This sounds highly likely to be in your ear vertigo with difficulty walking but I am concerned about her report of "electric jolt" in her head prior to the onset. Will brain imaging.), d/w patient Departure - Departure Disposition: 01 Home, Self Care Clinical Impression: Vertigo Balance problem due to vestibular dysfunction Qualifiers: Laterality: unspecified laterality Qualified Code(s): H83.2X9 - Labyrinthine dysfunction, unspecified ear Clinical Impression: (Ruled Out): Cerebrovascular accident (CVA) Condition: Stable Record reviewed to determine appropriate education?: Yes Instructions: ED Vertigo Unspecified Follow-Up: Chani Cain ARNP, [facility] [Primary Care Provider] - Alessandro Roman MD [Physician No Access] - Prescriptions: Meclizine [Antivert] 12.5 mg PO BID #30 tablet dexAMETHasone [Decadron] 4 mg PO DAILY #5 tablet Comments: Your blood tests and MRI did not show other bad causes for your balance problem. Specifically no signs of stroke tumor or bleeding in the brain. I presume therefore it is a inner ear problem. Use meclizine twice daily for the next week or so and an extra dose every 6 hours if needed for vertigo. Add Decadron daily for a few days for presumed inflammation of the inner ear. Follow-up with your primary care or Dr. Roman if not improved well over the next several days and resolved within a week. Discharge Date/Time: 12/08/19 16:13
[2019-12-08] MEDS ORDERED: SODIUM CHLORIDE 0.9% 1,000 ML IV STA (12:25)
[2019-12-08] MEDS ORDERED: MECLIZINE 12.5 MG TABLET PO STA (12:25)
[2019-12-08 12:33] LABS: BASOPHILS # (AUTO) 0.1 10^3/uL (0.0-0.1); BASOPHILS % (AUTO) 1.2 %; EOSINOPHILS # (AUTO) 0.2 10^3/uL (0.0-0.7); EOSINOPHILS % (AUTO) 1.9 %; HGB - HEMOGLOBIN 13.4 g/dL (12.0-16.0); LYMPHOCYTES # (AUTO) 2.2 10^3/uL (1.5-3.5); LYMPHOCYTES % (AUTO) 25.8 %; MEAN CORPUSCULAR HEMOGLOBIN 29.7 pg (27.0-31.0); MEAN CORPUSCULAR HGB CONC 33.4 g/dL (32.0-36.0); MEAN CORPUSCULAR VOLUME 88.9 fL (81.0-99.0); MEAN PLATELET VOLUME 9.1 fL (7.9-10.8); MONOCYTES # (AUTO) 1.1 10^3/uL (0.0-1.0); MONOCYTES % (AUTO) 12.4 %; NEUTROPHILS % (AUTO) 58.4 %; PLT - PLATELET COUNT 416 10^3/uL (130-450); RED BLOOD COUNT 4.51 10^6/uL (4.20-5.40); RED CELL DISTRIBUTION WIDTH 12.9 % (12.0-15.0); WHITE BLOOD COUNT 8.6 x10^3/uL (4.8-10.8)
[2019-12-08 12:43] LABS: ALBUMIN 4.3 g/dL (3.2-5.5); ALBUMIN/GLOBULIN RATIO 1.3 (1.0-2.2); BILIRUBIN,TOTAL 0.5 mg/dL (0.2-1.0); CREATININE 0.6 mg/dL (0.4-1.0); MAGNESIUM 2.2 mg/dL (1.7-2.8); TOTAL PROTEIN 7.5 g/dL (6.7-8.2)
[2019-12-08 13:03] LABS: BILIRUBIN,URINE NEGATIVE (NEGATIVE); GLUCOSE, URINE (UA) NEGATIVE (NEGATIVE); KETONES,URINE (UA) NEGATIVE (NEGATIVE); LEUKOCYTE ESTERASE, URINE NEGATIVE (NEGATIVE); NITRITE,URINE NEGATIVE (NEGATIVE); OCCULT BLOOD,URINE NEGATIVE (NEGATIVE); PROTEIN,URINE NEGATIVE (NEGATIVE); UROBILINOGEN,URINE 0.2 (NORMAL) E.U./dL (NORMAL)
[2019-12-08 13:05] LABS: CLARITY,URINE CLEAR (CLEAR)
--- NOTE | 2019-12-08 15:24 | MRI Report ---
PROCEDURE: Brain W/O INDICATIONS: ataxia for 1 week, mild headache at onset TECHNIQUE: Noncontrast axial T1 spin echo, axial T2 fast spin echo, sagittal and axial FLAIR, coronal T2 fast sp in echo, axial gradient echo, axial diffusion and ADC through the brain. In this patient, axial thin section 3-D FFE images were also obtained. COMPARISON: None available at the time of this dictation FINDINGS: Image quality: Motion artifact is noted. CSF Spaces: Basal cisterns are patent. No extra-axial fluid collections. Ventricles are normal in size and shape. Brain: No intracranial masses or hemorrhage. Mullen/white matter interface is normal. Brainstem appe ars normal. Diffusion-weighted images demonstrate no acute ischemic insult. No chronic ischemic ins ults. Normal intravascular flow voids are present. Prominent perivascular spaces are incidentally n oted. No internal auditory canal masses or cerebellopontine angle cistern masses can be seen. Skull and face: Calvarium has normal marrow signal. Orbits appear normal. Incidental note is made of bilateral lens replacements. Sinuses: Sinuses and mastoids are clear. IMPRESSION: No imaging explanation is found for the patient's presenting symptoms. No findings of acute or subacute infarction are seen. Reviewed by: Sebas Maurice MD on 12/08/2019 2:23 PM DINA Approved by: Sebas Maurice MD on 12/08/2019 2:23 PM DINA Station ID: [id number]
[2019-12-08] MEDS ORDERED: DEXAMETHASONE 10 MG/ML VIAL IVP STA (15:32)
[2019-12-08 16:05] VITALS: BP 144/89
== END 2019-12-08 16:13 | disposition home or self-care (01) ==
LOC: ED 11:37
DX: H83.2X9 Labyrinthine dysfunction, unspecified ear (principal); I10 Essential (primary) hypertension; E11.9 Type 2 diabetes mellitus without complications
CPT/HCPCS: 36415; 70551; 80053; 81003; 83690; 83735; 85025; 85651; 93005; 96361; 96374; 99284; A9270; 81001; 87086

== ENCOUNTER 2020-01-25 08:00 | Outpatient (CLI) | payer MEDICARE, OTHER ==
[2020-01-25 21:10] LABS: BILIRUBIN,URINE NEGATIVE (NEGATIVE); GLUCOSE, URINE (UA) NEGATIVE (NEGATIVE); KETONES,URINE (UA) NEGATIVE (NEGATIVE); LEUKOCYTE ESTERASE, URINE TRACE (NEGATIVE); NITRITE,URINE NEGATIVE (NEGATIVE); OCCULT BLOOD,URINE NEGATIVE (NEGATIVE); PROTEIN,URINE NEGATIVE (NEGATIVE); UROBILINOGEN,URINE 0.2 (NORMAL) E.U./dL (NORMAL)
[2020-01-25 21:19] LABS: CLARITY,URINE CLEAR (CLEAR)
[2020-01-25 21:31] LABS: RBC,URINE None Seen /HPF (0-5); SQUAMOUS EPITHELIAL CELL,UR MOD Squamous (<= Few)
[2020-01-25 21:33] LABS: BACTERIA,URINE Rare /HPF (None Seen)
== END 2020-01-25 23:59 | disposition home or self-care (01) ==
LOC: LAB.R 08:00
PROVIDERS: ATTEND Emergency Medicine
DX: N39.0 Urinary tract infection, site not specified (principal)
CPT/HCPCS: 81001; 87086